=== PATIENT | male | born 1945 | race Asian ===

== ENCOUNTER 2019-07-02 19:38 | Inpatient (IN) | payer OTHER, MEDICAID ==
[~2019-07-02] VITALS: Ht 152.4 cm; Wt 64.2 kg
[2019-07-02 19:38] VITALS: BP_SYST 148
--- NOTE | 2019-07-02 19:38 | NUR ---
Patient to ER bed 4 to gown for evaluation. Side rails up.
--- NOTE | 2019-07-02 19:40 | NUR ---
Pt brought in by [facility]. Pt awake, alert, oriented x4. Pt states that he was having new onset of shortness of breath since this evening with increasing severity. Pt states that he started taking Z-pack antibiotics that were given to him by a home health nurse, prescribed by his home health physician. Pt Denies chest pain, nausea, vomiting, diarrhea, at this time. Pt denies any pain or other medical complaint at this time. Pt presented with acessory muscle use, air hunger. Pt assisted to and resting comfortably in ED bed. VSS.
--- NOTE | 2019-07-02 19:45 | NUR ---
ER at bedside examining patient.
[2019-07-02] MEDS ORDERED: NACL 0.9% 1,000 ML IV ONE ×2 (19:48→21:15)
[2019-07-02] MEDS ORDERED: LevALBUTEROL HCL 1.25 MG/0.5 ML *CONC.* VIAL.NEB (XOPENEX CONC.) INH ONE (20:00)
[2019-07-02] MEDS ORDERED: methylPREDNISolone SOD SUCC/PF 62.5 MG/ML VIAL IVP ONE (20:00)
[2019-07-02] MEDS ORDERED: IPRATROPIUM BROM 0.5 MG/2.5 ML VIAL.NEB (ATROVENT) IH ONE (20:00)
[2019-07-02 20:19] LABS: BASOPHILS % (AUTO) 0.3 % (0.0-2.0); HEMATOCRIT 40.6 % (36-54); HEMOGLOBIN 13.4 g/dL (14.0-18.0); LYMPHOCYTES # (AUTO) 0.9 K/uL (1.0-5.5); LYMPHOCYTES % (AUTO) 5.7 % (20.5-51.5); MEAN CORPUSCULAR HEMOGLOBIN 32 pg (27-31); MEAN CORPUSCULAR HGB CONC 33 % (32-36); MEAN CORPUSCULAR VOLUME 96 fL (79.0-98.0); MONOCYTES # (AUTO) 0.6 K/uL (0.0-1.0); MONOCYTES % (AUTO) 3.9 % (1.7-9.3); NEUTROPHILS % (AUTO) 90.1 % (40.0-70.0); PLATELET COUNT (AUTO) 225 K/uL (130-430); RED BLOOD CELL COUNT(AUTO) 4.22 MIL/uL (4.2-6.2); RED CELL DISTRIBUTION WIDTH 13.7 % (9.0-15.0); WHITE BLOOD COUNT (AUTO) 15.5 K/uL (4.8-10.8)
--- NOTE | 2019-07-02 20:30 | NUR ---
Pt resting in bed comfortably. Family Bedside. Pt denies any new complaint at this time.
[2019-07-02 20:31] LABS: PROTHROMBIN TIME 9.8 SECS (9.5-12.5)
[2019-07-02 20:36] LABS: CHLORIDE 93 mmol/L (98-107); SODIUM SERUM 129 mmol/L (136-145)
[2019-07-02 20:43] LABS: ANION GAP 12 (5-15); CALCIUM 8.6 mg/dL (8.4-11.0); GLUCOSE 377 mg/dL (70-99); UREA NITROGEN, BLOOD 94 mg/dL (8-21)
[2019-07-02 20:44] LABS: ALANINE AMINOTRANSFERASE 37 U/L (12-78); ALBUMIN 3.6 g/dL (3.4-4.8); ASPARTATE AMINOTRANSFERASE 30 U/L (10-37); CREATININE 4.65 mg/dL (0.55-1.30); TOTAL BILIRUBIN 0.5 mg/dL (0.0-1.0)
[2019-07-02] MEDS ORDERED: NITROGLYCERIN 1 INCH (GM) OINT. TP ONE (20:45)
[2019-07-02 20:46] LABS: POTASSIUM 6.4 mmol/L (3.5-5.1)
[2019-07-02] MEDS ORDERED: INSULIN REGULAR, HUMAN 10 UNITS/0.1 ML INJ IVP ONE (21:15)
[2019-07-02] MEDS ORDERED: SODIUM POLYSTYRENE SULFONATE 15 GM/60 ML UDBTL PO ONE ×2 (21:30→23:45)
--- NOTE | 2019-07-02 21:45 | NUR ---
Pt Resting in ED bed comfortably. Family bedside speaking with patient. Pt denies any new complaint at this time. Pt appears to be in no distress at this time. Pt sitting in high fowlers position without complaint.
--- NOTE | 2019-07-02 22:39 | NUR ---
ER MD Serna Aware of Lab Values. No Sepsis/Septic Shock documented
--- NOTE | 2019-07-02 22:51 | NUR ---
Dr. Abarca Called to accept patient and Give orders for admission
--- NOTE | 2019-07-02 23:32 | NUR ---
Patient will be admitted to care of . Admitted to tele/inp unit. Will go to room 135. Belongings list completed. Summary report printed. Report will be given at bedside.
[2019-07-02] MEDS ORDERED: INSULIN REGULAR, HUMAN 100 UNITS/ML, 10 ML VIAL (humuLIN R) SUBCUT PRN (23:45)
[2019-07-03] VITALS (18 sets, daily range): BP systolic 97–165
--- NOTE | 2019-07-03 00:02 | NUR ---
Transfer to Tele via ACLS protocol. Licensed nurse present. IV present no signs or symptoms of infiltration.
--- NOTE | 2019-07-03 00:20 | NUR ---
ADMISSION NOTE Received patient from ER via eliseo, received report from ZEN FLOREZ. Patient admitted with diagnosis of HEART FAILURE. Patient oriented to hospital routine, call light, toileting and safety-patient verbalized understanding.
--- NOTE | 2019-07-03 01:10 | NUR ---
Assessment Assessment done and patient is resting in comfortable position. Clothes and diaper removed and he is in patient gown. Updated on plan of care.
[2019-07-03] MEDS ORDERED: FURO-150 PO (01:44)
[2019-07-03] MEDS ORDERED: ACET325T53 PO (01:44)
[2019-07-03] MEDS ORDERED: TAMS-11 PO (01:44)
[2019-07-03] MEDS ORDERED: MULT-1089 PO (01:44)
[2019-07-03] MEDS ORDERED: CAT.1 PO (01:44)
[2019-07-03] MEDS ORDERED: INSU100V11 SQ (01:44)
[2019-07-03] MEDS ORDERED: GLIP5TAB13 PO (01:44)
[2019-07-03] MEDS ORDERED: SIMV20TA2 PO (01:44)
[2019-07-03] MEDS ORDERED: ASCO500T20 PO (01:44)
[2019-07-03] MEDS ORDERED: NEU100 PO (01:44)
[2019-07-03] MEDS ORDERED: INSU100I4 SUBQ (01:44)
[2019-07-03] MEDS ORDERED: ASA81 PO (01:44)
[2019-07-03] MEDS ORDERED: RESEYE OP (01:50)
[2019-07-03] MEDS ORDERED: COMBIGAN OP (01:50)
[2019-07-03] MEDS ORDERED: FER300L PO (01:50)
--- NOTE | 2019-07-03 02:32 | NUR ---
CONSULTATION PAGED REASON FOR CONSULTATION: ELEVATED WBC, ELEVATED LACTIC, ACID WAS CONSULT CALLED? YES PERSON WHO WAS NOTIFIED: JOSE CONSULTING PHYSICIAN: DR. SUSI HILL CLOUD SUBJECT MATTER EXPERT SPECIALTY:ID CLOUD SUBJECT MATTER EXPERT PHONE NUMBER: SUSI DELANEY ORDERING PHYSICIAN: [phone]
--- NOTE | 2019-07-03 02:35 | NUR ---
DR. SUSI Wright CALLED BACK REGARDING STAT CONSULT ORDERED BY DR. SUSI DELANEY
--- NOTE | 2019-07-03 02:40 | NUR ---
Dr. Abarca S/W Dr. Kyle Abarca regarding consult. Updated on elevated WBC, Elevated lactic acid. He provided orders for antibiotic, Rochephin 1gm Q 24 hr. He also provided orders for labs, renal consult with Dr. Norbert Ching, renal ultrasound and IVF, 0.45 NS at 50 ml/hr.
[2019-07-03] MEDS ORDERED: 0.45% NS 1,000 ML IV SCH (02:45)
[2019-07-03] MEDS ORDERED: cefTRIAXone 1 GM IVPB PREMIX 50 ML IV ONE (03:30)
--- NOTE | 2019-07-03 03:58 | NUR ---
CONSULT Paged Dr. Patrick's answering service for morning consult Elevated Creatine [phone] Spoke to Oswaldo
[2019-07-03] MEDS: cefTRIAXone 1 GM in D5W 50 ML IV SCH ×2 (04:31→04:32)
[2019-07-03 04:42] LABS: BASOPHILS % (AUTO) 0.1 % (0.0-2.0); HEMATOCRIT 36.8 % (36-54); HEMOGLOBIN 11.9 g/dL (14.0-18.0); LYMPHOCYTES # (AUTO) 0.9 K/uL (1.0-5.5); LYMPHOCYTES % (AUTO) 6.7 % (20.5-51.5); MEAN CORPUSCULAR HEMOGLOBIN 31 pg (27-31); MEAN CORPUSCULAR HGB CONC 33 % (32-36); MEAN CORPUSCULAR VOLUME 96 fL (79.0-98.0); MONOCYTES # (AUTO) 0.3 K/uL (0.0-1.0); MONOCYTES % (AUTO) 2.4 % (1.7-9.3); NEUTROPHILS # (AUTO) 12.9 K/uL (1.8-7.7); NEUTROPHILS % (AUTO) 90.8 % (40.0-70.0); PLATELET COUNT (AUTO) 206 K/uL (130-430); RED BLOOD CELL COUNT(AUTO) 3.83 MIL/uL (4.2-6.2); RED CELL DISTRIBUTION WIDTH 13.8 % (9.0-15.0); WHITE BLOOD COUNT (AUTO) 14.2 K/uL (4.8-10.8)
--- NOTE | 2019-07-03 04:43 | NUR ---
Antibiotic, IVF Administered antibiotic and IVF, infusing well, patient tolerating.
[2019-07-03 05:04] LABS: ALANINE AMINOTRANSFERASE 34 U/L (12-78); ALBUMIN 3.1 g/dL (3.4-4.8); ANION GAP 14 (5-15); ASPARTATE AMINOTRANSFERASE 27 U/L (10-37); CALCIUM 7.4 mg/dL (8.4-11.0); CHLORIDE 96 mmol/L (98-107); CREATININE 4.62 mg/dL (0.55-1.30); SODIUM SERUM 131 mmol/L (136-145); TOTAL BILIRUBIN 0.4 mg/dL (0.0-1.0); UREA NITROGEN, BLOOD 98 mg/dL (8-21)
[2019-07-03 05:13] LABS: GLUCOSE 452 mg/dL (70-99)
--- NOTE | 2019-07-03 05:33 | NUR ---
Critical lab result / s/w MD Ramirez and s/w Dr. Lulu Abarca regarding critical lab results of blood glucose 452 mg/dL he provided orders for regular insulin 15 units now and endo consult with Dr. Boyle. Lactic acide critical result 5.4 he is aware and has Dr. Kyle Abarca on case for consult.
[2019-07-03] MEDS ORDERED: INSULIN REGULAR, HUMAN 100 UNITS/ML, 10 ML VIAL SUBCUT ONE (05:45)
--- NOTE | 2019-07-03 05:54 | NUR ---
CONSULT Called Dr. aPyan's exchange Uncontrolled Glucose [phone] Spoke to Damon
--- NOTE | 2019-07-03 05:56 | NUR ---
CONSULT: CONSULT CALLED FOR DR. MUSTAFA I SPOKE WITH JOSE MENDOZA REASON FOR CONSULT: ELEVATED CREATINE REQUESTING CONSULT: DR. SUSI DELANEY WOOL FLEECE GRADER PHONE NUMBER: [phone]
--- NOTE | 2019-07-03 06:04 | NUR ---
CONSULT: CONSULT CALLED FOR DR. LAWTON I SPOKE WITH JERICHO MENDOZA REASON FOR CONSULT: UNCONTROLLED BLOOD GLUCOSE REQUESTING CONSULT" DR. SUSI DELANEY GROUNDS MANAGER PHONE NUMBER: [phone]
--- NOTE | 2019-07-03 07:30 | NUR ---
closing note Patient resting in comfortable position, no s/sx of distress. Endorsed report
--- NOTE | 2019-07-03 08:10 | NUR ---
DR MUSTAFA ORDERS DR MUSTAFA CALLED AGAIN AND WANTS TO DISCUSSED FURTHER WITH PATIENT LABS ALREADY DONE AND WANTS TO ORDER MORE DR MUSTAFA WANTS TO ADD ON TO BLOOD DRAWN THIS AM, TO DO URINE 24 HOUR COLLECTION FOR PROTEIN AND CREAT CLEARANCE AND TO DO UA IF NOT DONE IN ER, FOR KIDNEY ULTRASOUND IF NOT DONE IN ER, STRICT I &O . DAILY WEIGH AND TO REPEAT LABS OF CBC AND BMP THIS 1100 AM , CALLED LAB AND VERIFIED FOR THE BLOOD DRAWN THIS AM PER LAB TO ENTER ORDER AND HE WILL CALL BACK IF THEY'RE ABLE TO DO ,ALSO DR MUSTAFA REQUESTED FOR THE LITHOGRAPH DESIGNER TO CALL DR DELANEY OFFICE TO OBTAIN LABS DONE IN THE FAST 2 YEARS AND TO FAX IT OVER TO DR MUSTAFA OFFICE , INFORMED AND REQUESTED ASSSITANCE WITH LITHOGRAPH DESIGNER L...ALSO ALL ORDERS NOTED WITH THE OTHER RN ASSISTANCE .
--- NOTE | 2019-07-03 09:00 | NUR ---
0745 RECEIVED PATIENT IN BED WITH DIM LIGHT STILL SLEEPING AT BEDSIDE AND RESTING , PER NIGHT NURSE STAYED AND INTERPRETED JEHOVAH'S WITNESS DIALECT , PATIENT ON HBR AND GREETED PATIENT ACKNOWLEDGED PRESENCE ANS INFORMED WILL COME BACK LATER , TO ATTEND TO HIM , PATIENT AND PER ENDORSEMENT PATIENT HAS NO COMPLAINED OF PAIN IN HER SHIFT, ALSO GREETED AND ACKNOWLEDGED OUR PRESENCE AND SHE STAYED LAYING IN HER CHAIR . 0800 DR TERRA VALENTINE RETURNED CALL FROM THE CONSULT PAGED LAST NIGHT AND DISCUSSED SOME OF THE LABS DONE AND PATIENT CONDITION AND DR MUSTAFA SPOKE ON THE PHONE WITH THE PATIENT'S AND AFTER THAT SPOKE WITH HAND ME THE PHONE AND SAID THANK YOU . PATIENT AT THIS TIME POSITIONED HOB IN 45 DEGREE GETTING PATIENT READY FOR BREAKFAST PATIENT WAS TALKING TO THE IN THEIR DIALECT, LEFT THE PATIENT AND SO HE COULD START EATING Addendum: 07/03/19 at 1200 by Jossy Caldwell RN ASSESSMENT NO ASSESSMENT DONE A THIS TIME DT PATIENT CODED
[2019-07-03 09:03] LABS: PHOSPHORUS 7.1 mg/dL (2.7-4.5)
--- NOTE | 2019-07-03 09:06 | NUR ---
Transfer to ICU Received report from endorsing RN. Pt in ROSC. Situated pt to room. Applied soft wrist restraints bilaterally for safety, pulses present, family educated on need for restraints and state understanding.
[2019-07-03] MEDS ORDERED: INSULIN REGULAR, HUMAN 100 UNITS in NS 99 ML IV SCH ×2 (09:15)
[2019-07-03 09:33] LABS: THYROID STIMULATING HORMONE 0.59 uIu/mL (0.34-4.82)
[2019-07-03 09:36] LABS: BILIRUBIN,URINE NEGATIVE (NEGATIVE); BLOOD, URINE NEGATIVE (NEGATIVE); CLARITY/URINE CLEAR (CLEAR); COLOR,URINE YELLOW (YELLOW); GLUCOSE,URINE 3+ (NEGATIVE); KETONES,URINE NEGATIVE (NEGATIVE); LEUKOCYTE ESTERASE ,URINE NEGATIVE (NEGATIVE); NITRITE, URINE NEGATIVE (NEGATIVE); PROTEIN URINE TRACE (NEGATIVE); UROBILINOGEN,URINE 0.2 (0.2-1.0)
--- NOTE | 2019-07-03 09:44 | NUR ---
Tack Puller Machine Note Moe palomo. Offered support to and, later, patient's son. Addendum: 07/03/19 at 1453 by Jenni Pereira LCSW TIKI conducted a Discharge Plan Assessment Patient lives with his , son, and daughter in law. Corrected contact information with Gabbi in Admitting and asked for a new face sheet, madyson lora [phone] c [phone]. They hope patient can be weaned from the ventilator and return home. Patient has been receiving home health services from [facility]. Tack Puller Machine/Case Management/[employer] will remain available.
[2019-07-03 09:45] LABS: BACTERIA,URINE FEW /HPF (None Seen); HYALINE CASTS, URINE 0-10 /LPF (None Seen); RBC,URINE 0-3 /HPF (0-3); WBC,URINE 0-3 /HPF (0-3)
--- NOTE | 2019-07-03 09:51 | NUR ---
Nutrition Update Andreas Scale 16 noted. Pt admitted for heart failure. Diet: 2 gm Na, renal, 2 gm Na, banana flakes daily BMI: 28.5 kg/m2 RD to follow per nutrition care standards.
--- NOTE | 2019-07-03 10:00 | NUR ---
0830 CAME INTO THE ROOM AND PATIENT STILL EATING HIS FOOD SLOWLY AND FINISHED HIS CEREAL AND BREAD AND NO SIGN OF COUGHING ,HE HAS A SMILE AND CONVERSING WITH THE , NO DISTRESS , INFORMED WITH THE PATIENT LISTENING THAT LIP CUTTER WHO SHE SPOKE ON THE PHONE HAS ORDERED ULTRASOUND OF THE KIDNEY , LABS AND WILL DO STRICT INPUT AND OUTPUT TO MONITOR HIS KIDNEY FUNCTION AND TO TREAT NECESSARY , ALSO INFORMED IN ORDER FOR US TO COLLECT URINE WE NEED TO CATHETERIZE THE PATIENT WITH A AGUILERA CATH TO COLLECT URINE FOR EXAM THAT THE LIP CUTTER TO TREAT FURTHER , PATIENT FULLY UNDERSTOOD, AND SHE WAS EXPLAINING TO THE PATIENT AND STUDENT AT BEDSIDE STILL CONVERSING WITH AND PATIENT , THEN THE NOTICED THAT PATIENT STARES BLANKLY I WAS BY THE DOOR GOING OUT TO PREPARE FOR THE MEDS AND TO PREPARE TO DO AGUILERA CATH INSERTION , AND STUDENT CALLED ME BACK AND I NOTED PATIENT STARES BLANKLY AND WHEN NAME IS CALLED PATIENT NON RESPONSIVE , NON RESPONSIVE TO THE STERNAL PAIN STIMULATION TO NO AVAIL. 0835 PATIENT NON RESPONSIVE CALLED [facility] AND CPR STARTED , STAFF CAME AND EMERGENCY CODE BLUE STARTED , AT BEDSIDE AND COMFORT PROVIDED 0930 PATIENT INTUBATED , RESUSCITATED AND ORDERED BY ER DR TRANSFER TO ICU PATIENT TRANSFERRED TO ICU WITH RESPIRATORY TEAM AND MONITORED REPORT GIVEN TO ASHUTOSH AND ALL PREVIOUS ORDERS GIVEN INFORMED L. DISABILITY SERVICES COORDINATOR TO NOTIFY DR RHETT GOLDMAN AND DR MUSTAFA THAT PATIENT IS TRANSFERRED TO ICU AND HAD A CODE BLUE FAMILY PRESENT AND AWARE OF THE PATIENT CONDITION AND SITUATION
[2019-07-03] MEDS: PIPERACILLIN/TAZO 2.25G/DEX-IS 50 ML IV SCH ×3 (10:22→21:08)
--- NOTE | 2019-07-03 10:30 | NUR ---
IV PLACEMENT: # 20 gauge angiocath placed to right AC. Use of asceptic technique. Opsite placed over site. Blood return noted. Blood for lab from site. Flushed with 10 cc of normal saline. No evidence of infiltration noted. Patient tolerated well.
--- NOTE | 2019-07-03 11:00 | NUR ---
Vent setting change to FiO2 80% by RT, pt tolerating well
--- NOTE | 2019-07-03 11:02 | NUR ---
Vent setting change to AC 26 by RT per MD order.
[2019-07-03] MEDS: LINEZOLID 300 ML IV SCH ×2 (11:21→21:09)
[2019-07-03 11:26] LABS: BASOPHILS # (AUTO) 0.1 K/uL (0.0-0.2); BASOPHILS % (AUTO) 0.3 % (0.0-2.0); EOSINOPHILS % (AUTO) 0.1 % (0.0-4.0); HEMATOCRIT 42.1 % (36-54); HEMOGLOBIN 13.1 g/dL (14.0-18.0); LYMPHOCYTES # (AUTO) 1.3 K/uL (1.0-5.5); LYMPHOCYTES % (AUTO) 6.3 % (20.5-51.5); MEAN CORPUSCULAR HEMOGLOBIN 31 pg (27-31); MEAN CORPUSCULAR HGB CONC 31 % (32-36); MEAN CORPUSCULAR VOLUME 100 fL (79.0-98.0); MONOCYTES # (AUTO) 1.2 K/uL (0.0-1.0); MONOCYTES % (AUTO) 5.8 % (1.7-9.3); NEUTROPHILS # (AUTO) 18.5 K/uL (1.8-7.7); NEUTROPHILS % (AUTO) 87.5 % (40.0-70.0); PLATELET COUNT (AUTO) 219 K/uL (130-430); RED BLOOD CELL COUNT(AUTO) 4.19 MIL/uL (4.2-6.2); RED CELL DISTRIBUTION WIDTH 14.6 % (9.0-15.0); WHITE BLOOD COUNT (AUTO) 21.2 K/uL (4.8-10.8)
[2019-07-03 11:35] LABS: ANION GAP 17 (5-15); CALCIUM 7.8 mg/dL (8.4-11.0); CHLORIDE 96 mmol/L (98-107); POTASSIUM 4.6 mmol/L (3.5-5.1); SODIUM SERUM 133 mmol/L (136-145)
--- NOTE | 2019-07-03 11:36 | NUR ---
Witnessed Insulin drip started at 6 units/hr, BS 363
[2019-07-03] MEDS: FUROSEMIDE 40 MG/4 ML VIAL IVP SCH ×2 (11:43→21:05)
[2019-07-03 11:49] LABS: GLUCOSE 409 mg/dL (70-99); UREA NITROGEN, BLOOD 105 mg/dL (8-21)
[2019-07-03] MEDS: MORPHINE 2 MG/ML INJ. SYRINGE IVP PRN (11:51)
--- NOTE | 2019-07-03 12:37 | NUR ---
CONSULT GI DR. RAMIREZ CALLED SPOKE TO GLORY DIALED [phone] ORDERED BY Kyle RAMOS
--- NOTE | 2019-07-03 12:42 | NUR ---
Witnessed Insulin drip titrated at 5 units/hr, BS 310
[2019-07-03] MEDS: AZITHROMYCIN 250 MG in NS 250 ML IV SCH (13:20)
--- NOTE | 2019-07-03 13:21 | NUR ---
Witnessed Insulin drip titrated at 4 units/hr, BS 289
--- NOTE | 2019-07-03 14:40 | NUR ---
Witnessed Insulin drip titrated at 3 units/hr, BS 214
[2019-07-03] MEDS ORDERED: DIATR MEGLU/DIATRIZ SOD 30 ML SOLUTION PO ONE (14:54)
--- NOTE | 2019-07-03 15:03 | NUR ---
0835 CODE BLUE. CPR IN PROGRESS. BAGGED THE PT VIA MASK/AMBU BAG 100% FIO2. 0843 ASSISTED INTUBATION ETT 7.01/18 AT LIP LINE WITH SERG ANCHOR FAST. CO2 DETECTOR CHANGED COLOR YELLOW AND BILATERAL BREATH SOUNDS. 0845 ROSC. TRANSFERRED PT TO ICU. PLACED PT ON VENT WITH AC20, VT450, PEEP +5, FIO2 100%. ALARM SET AND AUDIBLE, VENT TO RED OUTLET.
--- NOTE | 2019-07-03 15:51 | NUR ---
Vent setting changed to FiO2 70% by RT per MD orders.
--- NOTE | 2019-07-03 15:54 | NUR ---
Witnessed Insulin drip titrated at 2 units/hr, BS 176
--- NOTE | 2019-07-03 16:41 | NUR ---
Witnessed Insulin drip titrated at 1 units/hr, BS 135
--- NOTE | 2019-07-03 16:52 | NUR ---
1550 TITRATED FIO2 DOWN TO 70%. PT TOLERATING WELL. SPO2 99%, HR 59.
--- NOTE | 2019-07-03 17:16 | NUR ---
Witnessed Insulin drip titrated at 0 units/hr, BS 103
--- NOTE | 2019-07-03 17:20 | NUR ---
Pt off unit to CT with continuos monitoring and O2. RN, RT, tech present with pt.
--- NOTE | 2019-07-03 17:55 | NUR ---
Pt return from CT, situated to room. Tolerated well.
[2019-07-03 19:20] LABS: ANION GAP 13 (5-15); CALCIUM 7.2 mg/dL (8.4-11.0); CHLORIDE 96 mmol/L (98-107); CREATININE 4.92 mg/dL (0.55-1.30); GLUCOSE 86 mg/dL (70-99); SODIUM SERUM 130 mmol/L (136-145)
--- NOTE | 2019-07-03 19:20 | NUR ---
Endorsed plan of care to shift foreman RN.
[2019-07-03 19:27] LABS: UREA NITROGEN, BLOOD 107 mg/dL (8-21)
--- NOTE | 2019-07-03 19:30 | NUR ---
PM ASSESSMENT REPORT RECEIVED FROM ASHUTOSH ZALDIVAR. PT RECEIVED IN BED WITH EYES OPEN, RESPONDING TO TACTILE STIMULATION. FAMILY IS AT BEDSIDE. VSS, NO S/S OF ACUTE DISTRESS NOTED. PT INTUBATED, VENT SETTINGS: AC 26, TV 450, FIO2 70%, PEEP 5. SB ON MONITOR. R NARE NGT IN PLACE TO DIAZ. BILATERAL SOFT WRIST RESTRAINTS IN PLACE, NO S/S OF INJURY NOTED. AGUILERA CATH IN PLACE DRAINING YELLOW URINE TO GRAVITY. HOB ELEVATED, BED IN LOWEST POSITION, CALL LIGHT IN REACH. WILL CONTINUE TO MONITOR PT.
--- NOTE | 2019-07-03 19:45 | NUR ---
DR. LEIGHANN SHEPPARD MADE AWARE OF PT CURRENT LABS. ORDERS RECEIVED AND WILL BE CARRIED OUT ORDERED.
--- NOTE | 2019-07-03 20:42 | NUR ---
DR. LYDIA SHEPPARD MADE AWARE OF CT CHEST/ABD RESULTS. NO NEW ORDERS RECEIVED AT THIS TIME. WILL CONTINUE TO MONITOR PT.
[2019-07-03] MEDS: LORazepam 2 MG/ML VIAL IVP PRN ×2 (21:08→23:54)
[2019-07-03] MEDS ORDERED: INSULIN LISPRO SLIDING SCALE 100 UNITS/ML VIAL (humaLOG) SUBCUT PRN (22:15)
--- NOTE | 2019-07-03 23:40 | NUR ---
MIDLINE MIDLINE PLACED TO JOSHUA BY PICC LINE NURSE. PER PICC LINE NURSE MIDLINE OKAY TO USE AT THIS TIME.
[2019-07-04] VITALS (33 sets, daily range): BP systolic 91–162
[2019-07-04 00:12] LABS: ANION GAP 13 (5-15); CHLORIDE 90 mmol/L (98-107); CREATININE 5.09 mg/dL (0.55-1.30); GLUCOSE 149 mg/dL (70-99); POTASSIUM 4.2 mmol/L (3.5-5.1); SODIUM SERUM 127 mmol/L (136-145)
[2019-07-04 00:21] LABS: UREA NITROGEN, BLOOD 102 mg/dL (8-21)
--- NOTE | 2019-07-04 03:30 | NUR ---
CHG CHG BATH GIVEN AT THIS TIME. DONNA CARE DONE AND LINENS CHANGED. PT TOLERATED WELL. WILL CONTINUE TO MONITOR PT.
[2019-07-04] MEDS: LORazepam 2 MG/ML VIAL IVP PRN (04:04)
[2019-07-04 06:12] LABS: BASOPHILS % (AUTO) 0.2 % (0.0-2.0); HEMATOCRIT 30.8 % (36-54); HEMOGLOBIN 10.2 g/dL (14.0-18.0); LYMPHOCYTES # (AUTO) 0.9 K/uL (1.0-5.5); LYMPHOCYTES % (AUTO) 7.7 % (20.5-51.5); MEAN CORPUSCULAR HEMOGLOBIN 32 pg (27-31); MEAN CORPUSCULAR HGB CONC 33 % (32-36); MEAN CORPUSCULAR VOLUME 95 fL (79.0-98.0); MONOCYTES # (AUTO) 1.3 K/uL (0.0-1.0); MONOCYTES % (AUTO) 10.8 % (1.7-9.3); NEUTROPHILS # (AUTO) 9.6 K/uL (1.8-7.7); NEUTROPHILS % (AUTO) 81.3 % (40.0-70.0); PLATELET COUNT (AUTO) 159 K/uL (130-430); RED BLOOD CELL COUNT(AUTO) 3.23 MIL/uL (4.2-6.2); RED CELL DISTRIBUTION WIDTH 13.7 % (9.0-15.0); WHITE BLOOD COUNT (AUTO) 11.8 K/uL (4.8-10.8)
[2019-07-04] MEDS: PIPERACILLIN/TAZO 2.25G/DEX-IS 50 ML IV SCH ×3 (06:17→21:32)
--- NOTE | 2019-07-04 07:06 | NUR ---
ENDORSEMENT BEDSIDE REPORT GIVEN TO [facility] RN USING SBAR APPROACH.
[2019-07-04 07:14] LABS: T4 (THYROXINE) 5.6 ug/dL (4.5-12.0)
[2019-07-04 07:28] LABS: ALANINE AMINOTRANSFERASE 46 U/L (12-78); ALBUMIN 2.3 g/dL (3.4-4.8); ANION GAP 10 (5-15); ASPARTATE AMINOTRANSFERASE 55 U/L (10-37); CHLORIDE 94 mmol/L (98-107); CREATININE 4.93 mg/dL (0.55-1.30); GLUCOSE 148 mg/dL (70-99); POTASSIUM 4.1 mmol/L (3.5-5.1); SODIUM SERUM 128 mmol/L (136-145); TOTAL BILIRUBIN 0.5 mg/dL (0.0-1.0)
--- NOTE | 2019-07-04 07:45 | NUR ---
AM ASSESSMENT REPORT RECEIVED . PT RECEIVED IN BED WITH EYES OPEN, RESPONDING TO TACTILE STIMULATION. FAMILY IS AT BEDSIDE. VSS, NO S/S OF ACUTE DISTRESS NOTED. PT INTUBATED, VENT SETTINGS: AC 26, TV 450, FIO2 70%, PEEP 5. SR WITH IAV BLOCK AND PVC'S ON MONITOR. R NARE NGT IN PLACE TO LIS. BILATERAL SOFT WRIST RESTRAINTS IN PLACE, NO S/S OF INJURY NOTED. AGUILERA CATH IN PLACE DRAINING YELLOW URINE TO GRAVITY. HOB ELEVATED, BED IN LOWEST POSITION, CALL LIGHT IN REACH. BED ALARM ON. AIR MATTRESS. WILL CONTINUE TO MONITOR.
[2019-07-04 07:55] LABS: CALCIUM 6.6 mg/dL (8.4-11.0); UREA NITROGEN, BLOOD 109 mg/dL (8-21)
--- NOTE | 2019-07-04 08:05 | NUR ---
RT NOTES FIO2 to 60% per ABG results and titration order. No adverse reactions noted. Will monitor pt.
[2019-07-04] MEDS ORDERED: CALCIUM GLUCONATE 1 GM/10 ML VIAL IVP ONE (08:45)
[2019-07-04] MEDS ORDERED: FUROSEMIDE 40 MG/4 ML VIAL IVP ONE (08:45)
[2019-07-04 08:47] LABS: PHOSPHORUS 5.9 mg/dL (2.7-4.5)
--- NOTE | 2019-07-04 08:50 | NUR ---
RECEIVED CALL DR. MUSTAFA, INFORMED ABOUT THE LABS RESULT AND NEW ORDER RECEIVED.
[2019-07-04] MEDS ORDERED: DOPamine PREMIX 250 ML IV SCH (09:00)
[2019-07-04] MEDS ORDERED: COMMUNICATION ORDER XX ONE ×2 (09:00→09:30)
[2019-07-04] MEDS: NACL 0.9% 1,000 ML IV SCH ×3 (09:12→21:48)
[2019-07-04] MEDS: LINEZOLID 300 ML IV SCH ×2 (09:16→21:33)
[2019-07-04] MEDS ORDERED: INSULIN GLARGINE 100 UNITS/ML 10 ML VIAL SUBCUT ONE (09:30)
[2019-07-04] MEDS ORDERED: DEXTROSE 50% JECT 50 ML DISP.SYRIN IVP PRN (09:30)
--- NOTE | 2019-07-04 09:30 | NUR ---
sharad Consult: seen by Dr. Boyle discuss about the poc to the family member at the bedside.new order received.
[2019-07-04] MEDS ORDERED: MINERAL OIL 133 ML ENEMA RC ONE (09:45)
[2019-07-04] MEDS ORDERED: MINERAL OIL 30 ML UDC NG ONE (09:45)
--- NOTE | 2019-07-04 10:40 | NUR ---
RT NOTES Per Dr aCba's order, pushed ETT 2cm down, secured at 24cm lipline and vent settings to AC 22. FIO2 to 50% per titration order. No adverse reactions noted. Bilateral b/s/chest rise noted. Will monitor pt.
[2019-07-04] MEDS ORDERED: ALBUTEROL SULFATE 0.083% 2.5 MG/3 ML VIAL.NEB INH PRN (10:45)
[2019-07-04] MEDS ORDERED: IPRATROPIUM BROM 0.5 MG/2.5 ML VIAL.NEB (ATROVENT) INH PRN (10:45)
--- NOTE | 2019-07-04 10:47 | NUR ---
Pulmo consult: seen by Dr. Caba. family at bedside.
[2019-07-04] MEDS ORDERED: D5NS 1,000 ML IV PRN (11:00)
[2019-07-04] MEDS: AZITHROMYCIN 250 MG in NS 250 ML IV SCH (11:26)
[2019-07-04] MEDS: FUROSEMIDE 40 MG/4 ML VIAL IVP SCH ×2 (11:26→21:30)
[2019-07-04] MEDS: MINERAL OIL 30 ML UDC NG SCH ×2 (11:27→21:30)
[2019-07-04] MEDS: INSULIN LISPRO SLIDING SCALE 100 UNITS/ML VIAL (humaLOG) SUBCUT PRN ×4 (13:04→23:12)
[2019-07-04] MEDS: ALBUTEROL SULFATE 0.083% 2.5 MG/3 ML VIAL.NEB INH SCH ×2 (13:29→19:15)
[2019-07-04] MEDS: IPRATROPIUM BROM 0.5 MG/2.5 ML VIAL.NEB (ATROVENT) INH SCH ×2 (13:29→19:15)
[2019-07-04] MEDS ORDERED: CALCIUM GLUCONATE 1 GM/10 ML VIAL IVP SCH (14:00)
--- NOTE | 2019-07-04 14:00 | NUR ---
MD ROUNDS: SEEN BY Gertrude RAMOS DISCUSS ABOUT PATIENT CURRENT CONDITION AND PLAN OF CARE. PER MD FAMILY WILL DECIDED TODAY IF PT UNDERGOING HEMODIALYSIS.
--- NOTE | 2019-07-04 16:00 | NUR ---
TURN AND REPOSITION WITH PILLOW SUPPORT. FAMILY AT BEDSIDE UPDATED ABOUT THE POC.
[2019-07-04] MEDS: CALCIUM GLUCONATE 1 GM in NS 100 ML IV SCH (16:46)
--- NOTE | 2019-07-04 18:39 | NUR ---
Notes: no significant changes of condition noted. vent setting ac 22, tv 450 fio2 40% peep 5. saturation 99-100%. ivf ns @125ml/hr and dopamine @ 2.47ml/hr midline at right upper arm with two lumen. with good blood return. ngt at right nare, low intermittent suction coffee ground output 200ml for whole shift. abdomen distended.no bm after manual enema done. ortiz catheter draining clear yellow output 990ml out. skin intact. family wants to speak with doctors about DNR tomorrow. will endorsed to incoming nurse.
--- NOTE | 2019-07-04 19:30 | NUR ---
PM ASSESSMENT REPORT RECEIVED FROM LEONRA ZALDIVAR. PT RECEIVED IN BED WITH EYES CLOSED, RESPONDING TO TACTILE STIMULATION. VSS, NO S/S OF ACUTE DISTRESS NOTED. PT INTUBATED, VENT SETTINGS: AC 22, TV 450, FIO2 40%, PEEP 5. SR ON MONITOR. JOSHUA MIDLINE IN PLACE INFUSING NS @ 125 CC/HR AND DOPAMINE DRIP @ 1 MCG/KG/MIN. LAC AND RAC 20G TO SL, PATENT AND INTACT. R NARE NGT TO DIAZ, COFFEE GROUND DRAINAGE NOTED. FAMILY IS AT BEDSIDE. HOB ELEVATED, BED IN LOWEST POSITION, CALL LIGHT IN REACH. WILL CONTINUE TO MONITOR PT.
[2019-07-04] MEDS: FAMOTIDINE PF 20 MG/2 ML VIAL IVP SCH (21:30)
[2019-07-04] MEDS: HEPARIN SODIUM,PORCINE 5000 UNITS/ML VIAL SUBCUT SCH (21:32)
[2019-07-04 22:41] LABS: TOTAL VOLUME 24HRS,URINE 500 mL
[2019-07-04 22:42] LABS: CREATININE,URINE 73.5 MG/DL (30-125)
[2019-07-04 22:46] LABS: CREATININE CLEARANCE,URINE 6.4 ml/min (80-120); PATIENT WEIGHT 146 LBS
[2019-07-05] VITALS (35 sets, daily range): BP systolic 128–180
[2019-07-05] MEDS: CALCIUM GLUCONATE 1 GM in NS 100 ML IV SCH ×3 (00:42→18:00)
[2019-07-05] MEDS: ALBUTEROL SULFATE 0.083% 2.5 MG/3 ML VIAL.NEB INH SCH ×4 (00:50→20:53)
[2019-07-05] MEDS: IPRATROPIUM BROM 0.5 MG/2.5 ML VIAL.NEB (ATROVENT) INH SCH ×4 (00:51→20:53)
[2019-07-05] MEDS: LORazepam 2 MG/ML VIAL IVP PRN ×2 (02:35→04:28)
[2019-07-05] MEDS: INSULIN LISPRO SLIDING SCALE 100 UNITS/ML VIAL (humaLOG) SUBCUT PRN ×3 (03:33→19:01)
--- NOTE | 2019-07-05 03:45 | NUR ---
CHG CHG BATH GIVEN AT THIS TIME. DONNA CARE DONE AND LINENS CHANGED. PT TOLERATED WELL. WILL CONTINUE TO MONITOR PT.
[2019-07-05 05:27] LABS: BASOPHILS # (AUTO) 0.1 K/uL (0.0-0.2); BASOPHILS % (AUTO) 0.7 % (0.0-2.0); EOSINOPHILS % (AUTO) 0.1 % (0.0-4.0); HEMATOCRIT 33.5 % (36-54); HEMOGLOBIN 11.2 g/dL (14.0-18.0); LYMPHOCYTES # (AUTO) 1.1 K/uL (1.0-5.5); LYMPHOCYTES % (AUTO) 10.6 % (20.5-51.5); MEAN CORPUSCULAR HEMOGLOBIN 32 pg (27-31); MEAN CORPUSCULAR HGB CONC 34 % (32-36); MEAN CORPUSCULAR VOLUME 94 fL (79.0-98.0); MONOCYTES # (AUTO) 1.2 K/uL (0.0-1.0); MONOCYTES % (AUTO) 11.8 % (1.7-9.3); NEUTROPHILS # (AUTO) 7.8 K/uL (1.8-7.7); NEUTROPHILS % (AUTO) 76.8 % (40.0-70.0); PLATELET COUNT (AUTO) 183 K/uL (130-430); RED BLOOD CELL COUNT(AUTO) 3.57 MIL/uL (4.2-6.2); RED CELL DISTRIBUTION WIDTH 13.6 % (9.0-15.0); WHITE BLOOD COUNT (AUTO) 10.2 K/uL (4.8-10.8)
[2019-07-05 05:47] LABS: ALANINE AMINOTRANSFERASE 40 U/L (12-78); ALBUMIN 2.4 g/dL (3.4-4.8); ANION GAP 13 (5-15); ASPARTATE AMINOTRANSFERASE 40 U/L (10-37); CALCIUM 7.6 mg/dL (8.4-11.0); CHLORIDE 96 mmol/L (98-107); GLUCOSE 136 mg/dL (70-99); LIPASE 145 U/L (73-393); SODIUM SERUM 136 mmol/L (136-145); TOTAL BILIRUBIN 0.7 mg/dL (0.0-1.0)
[2019-07-05 05:54] LABS: POTASSIUM 2.8 mmol/L (3.5-5.1)
[2019-07-05 05:55] LABS: UREA NITROGEN, BLOOD 101 mg/dL (8-21)
[2019-07-05] MEDS: PIPERACILLIN/TAZO 2.25G/DEX-IS 50 ML IV SCH ×3 (06:01→22:28)
--- NOTE | 2019-07-05 07:20 | NUR ---
Endorsement Received shift report from tawny ZALDIVAR
--- NOTE | 2019-07-05 07:30 | NUR ---
Opening Note Patient received sleeping in bed with family @ bedside. Patient on monitoring analyst with NSR. Patient on a ventilator with settings of AC 22, tidal volume 450, FiO2 40%, and PEEP 5. Patient has a right upper midline infusing NS @ 125 ml/hr. Patient also has peripheral IV's patent and saline-locked. Patient also on a dopamine drip @ 1 mcg/min. Patient has a right nare NGT connected to low intermittent suction. Patient has a ortiz catheter in place draining yellow urine. Skin intact. Safety precautions enforced.
[2019-07-05] MEDS ORDERED: POTASSIUM CHLORIDE 40 MEQ in NS 250 ML IV ONE (07:45)
[2019-07-05] MEDS ORDERED: COMMUNICATION ORDER XX ONE (07:45)
[2019-07-05] MEDS: MINERAL OIL 30 ML UDC NG SCH ×2 (08:41→20:12)
[2019-07-05] MEDS: FUROSEMIDE 40 MG/4 ML VIAL IVP SCH (08:42)
[2019-07-05] MEDS: HEPARIN SODIUM,PORCINE 5000 UNITS/ML VIAL SUBCUT SCH ×2 (08:44→20:14)
[2019-07-05] MEDS ORDERED: INSULIN GLARGINE 100 UNITS/ML 10 ML VIAL SUBCUT SCH (09:00)
[2019-07-05] MEDS: NACL 0.9% 1,000 ML IV SCH ×2 (09:18→22:27)
--- NOTE | 2019-07-05 09:52 | NUR ---
RT NOTES Vent settings to AC [address] Caba's order. No adverse reactions noted. Will monitor pt. Addendum: 07/05/19 at 1010 by Debi Valderrama RT Amended: Links added.
--- NOTE | 2019-07-05 10:45 | NUR ---
Called Dr Patrick regarding PT high blood pressure. Spoke to Adriane and left message.
--- NOTE | 2019-07-05 11:13 | NUR ---
MD Rounds Dr. Kyle Abarca @ bedside for examination. New orders received.
[2019-07-05] MEDS ORDERED: hydrALAZINE HCL 20 MG/ML VIAL IVP ONE (11:15)
[2019-07-05] MEDS: LINEZOLID 300 ML IV SCH (11:17)
--- NOTE | 2019-07-05 11:28 | NUR ---
MD Rounds Dr. Desire Abarca @ bedside for examination. New orders received.
[2019-07-05] MEDS ORDERED: HEPARIN SODIUM,PORCINE 5000 UNITS/ML VIAL MC ONE (13:00)
--- NOTE | 2019-07-05 13:00 | NUR ---
Dialysis Catheter insertion Dr. Orellana @ bedside for dialysis catheter insertion. Given Heparin 5,000 units by MD. Patient tolerated procedure well.
[2019-07-05 13:04] LABS: PROTHROMBIN TIME 10.3 SECS (9.5-12.5)
[2019-07-05] MEDS ORDERED: ATROPINE SULFATE 1 MG/10 ML SYRINGE IVP ONE (13:27)
--- NOTE | 2019-07-05 13:50 | NUR ---
MD Rounds Dr. Patrick @ bedside for examination. New orders received.
--- NOTE | 2019-07-05 14:25 | NUR ---
MD Rounds Dr. Boyle @ bedside for examination.
[2019-07-05] MEDS: AZITHROMYCIN 250 MG in NS 250 ML IV SCH (15:45)
[2019-07-05] MEDS: hydrALAZINE HCL 20 MG/ML VIAL IVP PRN ×2 (15:45→22:29)
--- NOTE | 2019-07-05 17:11 | NUR ---
Dialysis cis coordinator @ bedside at this time.
[2019-07-05] MEDS ORDERED: *TPN PER PHARMACY XX PRN (17:15)
--- NOTE | 2019-07-05 19:10 | NUR ---
Endorsement Handoff report given to night RN using SBAR.
--- NOTE | 2019-07-05 19:15 | NUR ---
PM ASSESSMENT Pt in bed with eyes closed resting comfortably, no signs of acute distress or discomfort noted. Family at bedside. Pt receiving dialysis at this time. VSS with SR seen on the monitor. Pt intubated with vent settings AC 16, TV 450, FiO2 40% and PEEP of 5. Pt has a JOSHUA midline infusing NS @ 80 cc/hr and Dopamine @ 1 mcg. Dressing c/d/i. Pt also has L AC 20g SL and R IJ for dialysis, c/d/i. R nare NG tube noted connected to LIS. Farrar cath noted draining urine to gravity. Bed is locked and in lowest position, call light within reach, will cont to monitor pt.
--- NOTE | 2019-07-05 19:25 | NUR ---
Closing notes Pt is receiving dialysis. No signs of distress or pain. Bed in lowest position & locked.
[2019-07-05] MEDS: FAMOTIDINE PF 20 MG/2 ML VIAL IVP SCH (20:12)
--- NOTE | 2019-07-05 22:00 | NUR ---
Pt in bed with eyes closed resting comfortably, no signs of acute distress or discomfort noted. Pt repositioned at this time, pt tolerated well. Will cont to monitor pt.
[2019-07-06] VITALS (32 sets, daily range): BP systolic 110–174
--- NOTE | 2019-07-06 | NUR ---
Pt in bed with eyes closed resting comfortably, no signs of acute distress or discomfort noted. Pt vent settings still AC 16, TV 450, FIO2 40% and PEEP of 5. Pt tolerating vent settings well with even and unlabored breathing and O2 sats @ 97%. Will cont to monitor pt.
[2019-07-06] MEDS: CALCIUM GLUCONATE 1 GM in NS 100 ML IV SCH (01:05)
[2019-07-06] MEDS: ALBUTEROL SULFATE 0.083% 2.5 MG/3 ML VIAL.NEB INH SCH ×4 (01:38→20:24)
[2019-07-06] MEDS: IPRATROPIUM BROM 0.5 MG/2.5 ML VIAL.NEB (ATROVENT) INH SCH ×4 (01:39→20:24)
--- NOTE | 2019-07-06 03:45 | NUR ---
CHG CHG bath given to pt at this time. Pt tolerated bath well, will cont to monitor pt.
[2019-07-06] MEDS: PIPERACILLIN/TAZO 2.25G/DEX-IS 50 ML IV SCH ×3 (05:04→22:29)
[2019-07-06 05:42] LABS: BASOPHILS # (AUTO) 0.1 K/uL (0.0-0.2); BASOPHILS % (AUTO) 0.5 % (0.0-2.0); EOSINOPHILS % (AUTO) 0.4 % (0.0-4.0); HEMATOCRIT 32.7 % (36-54); HEMOGLOBIN 10.9 g/dL (14.0-18.0); LYMPHOCYTES # (AUTO) 1.2 K/uL (1.0-5.5); LYMPHOCYTES % (AUTO) 10.8 % (20.5-51.5); MEAN CORPUSCULAR HEMOGLOBIN 32 pg (27-31); MEAN CORPUSCULAR HGB CONC 33 % (32-36); MEAN CORPUSCULAR VOLUME 94 fL (79.0-98.0); MONOCYTES # (AUTO) 1.1 K/uL (0.0-1.0); MONOCYTES % (AUTO) 10.1 % (1.7-9.3); NEUTROPHILS # (AUTO) 8.8 K/uL (1.8-7.7); NEUTROPHILS % (AUTO) 78.2 % (40.0-70.0); PLATELET COUNT (AUTO) 178 K/uL (130-430); RED BLOOD CELL COUNT(AUTO) 3.47 MIL/uL (4.2-6.2); RED CELL DISTRIBUTION WIDTH 13.7 % (9.0-15.0); WHITE BLOOD COUNT (AUTO) 11.2 K/uL (4.8-10.8)
[2019-07-06 06:06] LABS: ALANINE AMINOTRANSFERASE 29 U/L (12-78); ALBUMIN 2.2 g/dL (3.4-4.8); ANION GAP 17 (5-15); ASPARTATE AMINOTRANSFERASE 29 U/L (10-37); CALCIUM 8.5 mg/dL (8.4-11.0); CHLORIDE 101 mmol/L (98-107); CREATININE 3.49 mg/dL (0.55-1.30); GLUCOSE 160 mg/dL (70-99); PHOSPHORUS 5.6 mg/dL (2.7-4.5); SODIUM SERUM 141 mmol/L (136-145); UREA NITROGEN, BLOOD 74 mg/dL (8-21)
[2019-07-06 06:24] LABS: POTASSIUM 2.5 mmol/L (3.5-5.1)
[2019-07-06] MEDS: INSULIN LISPRO SLIDING SCALE 100 UNITS/ML VIAL (humaLOG) SUBCUT PRN ×4 (06:25→18:25)
--- NOTE | 2019-07-06 06:33 | NUR ---
Page out to Dr. Lulu Abarca for critical lab of K 2.5. Spoke to exchange. Will cont to monitor pt.
--- NOTE | 2019-07-06 06:50 | NUR ---
Second page out to Dr. Lulu Abarca for critical lab of K 2.5. Spoke with Alden at his exchange. Will cont to monitor pt.
--- NOTE | 2019-07-06 07:08 | NUR ---
Dr. Lulu Abarca called back. Made MD aware of pt's critical lab K+ 2.5. New orders received. Will endorse to oncoming nurse.
--- NOTE | 2019-07-06 07:10 | NUR ---
ENDORSEMENT Report given to oncoming RN and pt care was endorsed. No signs of acute distress or discomfort noted.
--- NOTE | 2019-07-06 07:15 | NUR ---
Opening Note Patient received in bed connected to the cardiac catheterization technologist with NSR. Patient on ventilator with settings of AC 16, tidal volume 450, FiO2 40%, and PEEP 5. No signs of distress noted. Patient has a right upper arm midline infusing NS @ 80 ml/hr. Patient also receiving dopamine @ 1 mcg/min. Patient with peripheral IV and right right IJ for dialysis. Patient has a NGT connected to low intermittent suction. Patient has a ortiz catheter draining yellow urine. Skin intact. Safety precautions enforced.
[2019-07-06] MEDS ORDERED: POTASSIUM CHLORIDE 20 MEQ/PKT PACKET NG ONE (08:00)
[2019-07-06] MEDS: MINERAL OIL 30 ML UDC NG SCH ×2 (08:18→20:35)
[2019-07-06] MEDS: FUROSEMIDE 40 MG/4 ML VIAL IVP SCH (08:19)
[2019-07-06] MEDS: HEPARIN SODIUM,PORCINE 5000 UNITS/ML VIAL SUBCUT SCH ×2 (08:20→20:34)
[2019-07-06] MEDS: INSULIN GLARGINE 100 UNITS/ML 10 ML VIAL SUBCUT SCH (08:24)
--- NOTE | 2019-07-06 08:30 | NUR ---
MD Rounds Dr. Caba @ bedside for examination.
--- NOTE | 2019-07-06 09:40 | NUR ---
Dialysis airfield defence guard @ bedside.
[2019-07-06] MEDS ORDERED: HEPARIN SODIUM,PORCINE 5000 UNITS/ML VIAL ONE ×3 (10:26→19:13)
--- NOTE | 2019-07-06 10:54 | NUR ---
Per studio receptionist, Sherri, dialysis catheter keeps collapsing. To call Dr. Orellana to fix catheter or place a new one per Dr. Patrick. Once dialysis catheter is fixed/replaced, RN to call Jackie studio receptionist, to resume current dialysis order.
[2019-07-06] MEDS: AZITHROMYCIN 250 MG in NS 250 ML IV SCH (11:22)
[2019-07-06] MEDS: NACL 0.9% 1,000 ML IV SCH (11:23)
--- NOTE | 2019-07-06 13:20 | NUR ---
MD Rounds Dr. Desire Abarca @ bedside for examination.
[2019-07-06] MEDS ORDERED: HEPARIN SODIUM, PORCINE 10,000 UNITS/ 10 ML VIAL MC ONE (13:45)
--- NOTE | 2019-07-06 13:51 | NUR ---
Ventilator update RT at bedside, FiO2 changed to 35%, O2 saturation at 100%.
--- NOTE | 2019-07-06 14:16 | NUR ---
Dietitian Recommendations * Recommend continuing plans for TPN D20,% AA5.4% at 42 ml/hr, IL20% at 5 ml/hr via central line Provides: 520 kcal/day, 27 gm protein/day, 1008 ml total volume/day, and GIR: 0.53 gm CHO/kg/min Meets: 36% of estimated caloric needs and 75% of lower end of estimated protein needs * RD to re-assess estimated nutritional needs and TPN recommendations in 2-3 days LP, RD Please refer to Nutrition Assessment for details. Addendum: 07/06/19 at [address] Amended: Links added.
--- NOTE | 2019-07-06 14:20 | NUR ---
MD Rounds Dr. Patrick @ bedside for examination. New orders received.
--- NOTE | 2019-07-06 15:20 | NUR ---
Ventilator update RT at bedside, settings changed to SIMV, rate: 10, FiO2: 35%, Peep: 5 Addendum: 07/06/19 at 1525 by Shiva Bosch RN Ventilator update RT at bedside, settings changed to SIMV, rate: 10, FiO2: 30%, Peep: 5
--- NOTE | 2019-07-06 16:30 | NUR ---
Dr. Orellana in and did a guidewire exchange and replaced the po catheter. CXR taken post procedure and xray reviewed by Dr. Orellana. Po is good to use. traffic warehouse supervisor notified to re call the dialysis company to come back and finish the HD from this morning, per Dr. Patrick.
--- NOTE | 2019-07-06 17:00 | NUR ---
MD Rounds Dr. Boyle @ bedside for examination.
--- NOTE | 2019-07-06 17:32 | NUR ---
Dialysis work force advisor @ bedside @ this time. Patient sleeping comfortably.
--- NOTE | 2019-07-06 19:20 | NUR ---
PM ASSESSMENT Pt in bed with eyes closed resting comfortably, no signs of acute distress or discomfort noted. Family at bedside. Pt receiving dialysis at this time. VSS. Pt intubated with vent settings SIMV 10, TV 450, FiO2 30%, PS 10 and PEEP of 5. Pt has a JOSHUA midline infusing NS @ 80 cc/hr. Dressing c/d/i. Pt also has L AC 20g SL and R IJ for dialysis, c/d/i. R nare NG tube noted connected to LIS. Farrar cath noted draining urine to gravity. Bilat wrist restraints noted. Bed is locked and in lowest position, call light within reach, will cont to monitor pt.
--- NOTE | 2019-07-06 19:24 | NUR ---
Closing Note Patient endorsed via SBAR to nurse ZEN Black. Patient is receiving Dialysis and has no s/s of distress.
[2019-07-06] MEDS: FAT EMULSIONS 250 ML IV SCH (20:33)
[2019-07-06] MEDS: FAMOTIDINE PF 20 MG/2 ML VIAL IVP SCH (20:35)
[2019-07-06] MEDS ORDERED: NACL 0.9% 1,000 ML IV SCH (21:00)
[2019-07-06] MEDS ORDERED: MVI IV SCH ×8 (21:00)
[2019-07-06] MEDS ORDERED: POTASSIUM CHLORIDE IV SCH ×8 (21:00)
[2019-07-06] MEDS ORDERED: TPN NEPHRAMINE IV SCH ×8 (21:00)
[2019-07-06] MEDS: hydrALAZINE HCL 20 MG/ML VIAL IVP PRN (21:00)
[2019-07-06] MEDS ORDERED: [UNRECOGNIZED DRUG - OTHER] IV SCH ×8 (21:00)
--- NOTE | 2019-07-06 21:00 | NUR ---
PAGED Paged Dr. Caba's exchange/Dr. Gonzalez food production manager [phone] Spoke to Joselyn
--- NOTE | 2019-07-06 22:40 | NUR ---
MD FLOR Called Dr. Boyle's exchange [phone] Spoke to Duane
--- NOTE | 2019-07-06 22:50 | NUR ---
Spoke to Dr. Boyle regarding pt's blood sugar of 97. New orders received, will carry out orders.
[2019-07-06] MEDS ORDERED: D5/0.45 NS 1,000 ML IV SCH (23:00)
[2019-07-06] MEDS: MORPHINE 2 MG/ML INJ. SYRINGE IVP PRN (23:52)
[2019-07-06] MEDS: LORazepam 2 MG/ML VIAL IVP PRN (23:52)
[2019-07-07] VITALS (32 sets, daily range): BP systolic 139–199
[2019-07-07] MEDS: IPRATROPIUM BROM 0.5 MG/2.5 ML VIAL.NEB (ATROVENT) INH SCH ×4 (01:52→19:55)
[2019-07-07] MEDS: ALBUTEROL SULFATE 0.083% 2.5 MG/3 ML VIAL.NEB INH SCH ×4 (01:52→19:55)
[2019-07-07] MEDS: LORazepam 2 MG/ML VIAL IVP PRN ×2 (02:47→20:57)
[2019-07-07] MEDS: MORPHINE 2 MG/ML INJ. SYRINGE IVP PRN ×2 (02:47→20:57)
[2019-07-07] MEDS: INSULIN LISPRO SLIDING SCALE 100 UNITS/ML VIAL (humaLOG) SUBCUT PRN ×6 (02:53→22:38)
--- NOTE | 2019-07-07 03:20 | NUR ---
CHG CHG bath given to pt at this time. Pt tolerated well. No signs of acute distress or discomfort noted. Will cont to monitor pt.
[2019-07-07] MEDS: hydrALAZINE HCL 20 MG/ML VIAL IVP PRN ×4 (05:13→23:16)
[2019-07-07 05:53] LABS: BASOPHILS # (AUTO) 0.1 K/uL (0.0-0.2); BASOPHILS % (AUTO) 0.5 % (0.0-2.0); EOSINOPHILS # (AUTO) 0.4 K/uL (0.0-0.4); EOSINOPHILS % (AUTO) 3.5 % (0.0-4.0); HEMATOCRIT 30.1 % (36-54); HEMOGLOBIN 10.3 g/dL (14.0-18.0); LYMPHOCYTES % (AUTO) 9.5 % (20.5-51.5); MEAN CORPUSCULAR HEMOGLOBIN 33 pg (27-31); MEAN CORPUSCULAR HGB CONC 34 % (32-36); MEAN CORPUSCULAR VOLUME 95 fL (79.0-98.0); MONOCYTES # (AUTO) 1.1 K/uL (0.0-1.0); MONOCYTES % (AUTO) 10.2 % (1.7-9.3); NEUTROPHILS # (AUTO) 8.2 K/uL (1.8-7.7); NEUTROPHILS % (AUTO) 76.3 % (40.0-70.0); PLATELET COUNT (AUTO) 172 K/uL (130-430); RED BLOOD CELL COUNT(AUTO) 3.17 MIL/uL (4.2-6.2); RED CELL DISTRIBUTION WIDTH 13.8 % (9.0-15.0); WHITE BLOOD COUNT (AUTO) 10.8 K/uL (4.8-10.8)
[2019-07-07] MEDS: PIPERACILLIN/TAZO 2.25G/DEX-IS 50 ML IV SCH ×3 (06:24→22:35)
[2019-07-07 06:25] LABS: ALANINE AMINOTRANSFERASE 31 U/L (12-78); ALBUMIN 2.1 g/dL (3.4-4.8); ANION GAP 7 (5-15); ASPARTATE AMINOTRANSFERASE 29 U/L (10-37); CALCIUM 7.7 mg/dL (8.4-11.0); CHLORIDE 104 mmol/L (98-107); CREATININE 2.34 mg/dL (0.55-1.30); GLUCOSE 165 mg/dL (70-99); PHOSPHORUS 2.9 mg/dL (2.7-4.5); POTASSIUM 3.3 mmol/L (3.5-5.1); SODIUM SERUM 137 mmol/L (136-145); TOTAL BILIRUBIN 0.8 mg/dL (0.0-1.0); TRIGLYCERIDES 125 mg/dL (30-150); UREA NITROGEN, BLOOD 38 mg/dL (8-21)
--- NOTE | 2019-07-07 06:35 | NUR ---
Page out to Dr. Gunderson for critical lab value. Spoke to Abbie aguilar exchange. Addendum: 07/07/19 at 0659 by Wayne Eisenberg RN BRANDYN GONZALEZ PT.
--- NOTE | 2019-07-07 07:20 | NUR ---
Received patient and report from NOC shift. In no acute distress.
--- NOTE | 2019-07-07 07:23 | NUR ---
ENDORSEMENT Report given to oncoming day shift RN and pt care was endorsed, no signs of acute distress or discomfort noted.
--- NOTE | 2019-07-07 09:00 | NUR ---
MD Patrick new order hemodialysis 3 hours UF 2.5, 4 k with regular Heparin. D/C IV fluids today. CMP with diff, CBC, chest x-ray, magnesium, phosphorus tomorrow morning. Orders placed and carried out.
[2019-07-07] MEDS: FUROSEMIDE 40 MG/4 ML VIAL IVP SCH (10:04)
[2019-07-07] MEDS: MINERAL OIL 30 ML UDC NG SCH ×2 (10:05→20:58)
[2019-07-07] MEDS: INSULIN GLARGINE 100 UNITS/ML 10 ML VIAL SUBCUT SCH (10:07)
[2019-07-07] MEDS: HEPARIN SODIUM,PORCINE 5000 UNITS/ML VIAL SUBCUT SCH ×2 (10:22→21:00)
--- NOTE | 2019-07-07 13:00 | NUR ---
Dialysis nurse present at bedside.
[2019-07-07] MEDS: TOBRAMYCIN SULFATE 0.3% EYE DROPS 5 ML OP SCH ×3 (15:33→22:35)
[2019-07-07] MEDS: DEXAMETHASONE SOD PHOS 0.1% EYE OR EAR DROPS OP SCH ×3 (15:33→22:35)
--- NOTE | 2019-07-07 16:00 | NUR ---
Dialysis completed, removed 2 liters.
--- NOTE | 2019-07-07 16:26 | NUR ---
Page out to Dr. Desire Abarca, new orders made.
--- NOTE | 2019-07-07 16:50 | NUR ---
Called MD Abarca, reported systolic b/p range from 160s to 170s despite PRN apresoline, new order Norvasc daily 10 mg via NGT.
[2019-07-07] MEDS ORDERED: amLODIPine BESYLATE 10 MG TABLET PO ONE (17:00)
--- NOTE | 2019-07-07 19:19 | NUR ---
Endorsed patient and gave report to oncoming shift nurse. Patient in no acute distress.
--- NOTE | 2019-07-07 19:50 | NUR ---
Opening Note Pt in bed, confused/lethargic. Pt is SR on the monitor. Vent settings: SIMV 10, TV 450, FIO2 30%, PEEP 5, PS 10. No s/s of distress noted. VSS, w/ BP elevated. PRN medication to be given. Pt has RAC 20 SL and JOSHUA midline in place running TPN/Lipids/ IV site C/D/I. Rt IJ Derik cather in place for dialysis. No s/s of infiltration noted. Farrar catheter in place draining urine to gravity. Pt has (R)NGT set to low intermittent suction. Pt has restraints bilaterally. No s/s of skin breakdown noted. Skin intact, Q2H turns in place. Bed locked in lowest position, call light in reach, and safety precautions in place. Will continue to monitor.
[2019-07-07] MEDS: FAMOTIDINE PF 20 MG/2 ML VIAL IVP SCH (20:56)
[2019-07-07] MEDS ORDERED: [UNRECOGNIZED DRUG - OTHER] IV SCH ×8 (21:00)
[2019-07-07] MEDS ORDERED: MVI IV SCH ×8 (21:00)
[2019-07-07] MEDS ORDERED: POTASSIUM CHLORIDE IV SCH ×8 (21:00)
[2019-07-07] MEDS ORDERED: TPN NEPHRAMINE IV SCH ×8 (21:00)
[2019-07-07] MEDS: FAT EMULSIONS 250 ML IV SCH (21:03)
[2019-07-08] VITALS (33 sets, daily range): BP systolic 20–203
--- NOTE | 2019-07-08 00:39 | NUR ---
RN Rounds Pt in bed asleep. No s/s of distress noted. BP remains elevated. PRN Apresoline given. Will continue to monitor.
[2019-07-08] MEDS: ALBUTEROL SULFATE 0.083% 2.5 MG/3 ML VIAL.NEB INH SCH ×4 (00:45→19:43)
[2019-07-08] MEDS: IPRATROPIUM BROM 0.5 MG/2.5 ML VIAL.NEB (ATROVENT) INH SCH ×4 (00:45→19:44)
[2019-07-08] MEDS: MORPHINE 2 MG/ML INJ. SYRINGE IVP PRN ×2 (01:27→04:15)
[2019-07-08] MEDS: LORazepam 2 MG/ML VIAL IVP PRN ×2 (01:28→04:15)
--- NOTE | 2019-07-08 02:30 | NUR ---
RN Rounds Pt in bed asleep. No s/s of distress noted. Pt oral care given and turned Q2H. Will continue to monitor.
[2019-07-08] MEDS: INSULIN LISPRO SLIDING SCALE 100 UNITS/ML VIAL (humaLOG) SUBCUT PRN ×6 (02:32→22:16)
[2019-07-08] MEDS: TOBRAMYCIN SULFATE 0.3% EYE DROPS 5 ML OP SCH ×6 (02:33→22:12)
[2019-07-08] MEDS: DEXAMETHASONE SOD PHOS 0.1% EYE OR EAR DROPS OP SCH ×6 (02:33→22:12)
--- NOTE | 2019-07-08 04:30 | NUR ---
CHG CHG bath given and linens changed. Pt tolerated well. Will continue to monitor.
[2019-07-08] MEDS: hydrALAZINE HCL 20 MG/ML VIAL IVP PRN ×3 (05:37→18:41)
[2019-07-08 06:02] LABS: BASOPHILS # (AUTO) 0.1 K/uL (0.0-0.2); BASOPHILS % (AUTO) 0.6 % (0.0-2.0); EOSINOPHILS # (AUTO) 0.4 K/uL (0.0-0.4); EOSINOPHILS % (AUTO) 3.8 % (0.0-4.0); HEMATOCRIT 32.2 % (36-54); HEMOGLOBIN 10.8 g/dL (14.0-18.0); LYMPHOCYTES # (AUTO) 0.9 K/uL (1.0-5.5); LYMPHOCYTES % (AUTO) 9.2 % (20.5-51.5); MEAN CORPUSCULAR HEMOGLOBIN 32 pg (27-31); MEAN CORPUSCULAR HGB CONC 34 % (32-36); MEAN CORPUSCULAR VOLUME 95 fL (79.0-98.0); MONOCYTES # (AUTO) 1.2 K/uL (0.0-1.0); MONOCYTES % (AUTO) 11.7 % (1.7-9.3); NEUTROPHILS # (AUTO) 7.5 K/uL (1.8-7.7); NEUTROPHILS % (AUTO) 74.7 % (40.0-70.0); PLATELET COUNT (AUTO) 171 K/uL (130-430); RED BLOOD CELL COUNT(AUTO) 3.39 MIL/uL (4.2-6.2); RED CELL DISTRIBUTION WIDTH 13.7 % (9.0-15.0); WHITE BLOOD COUNT (AUTO) 10.1 K/uL (4.8-10.8)
[2019-07-08] MEDS: PIPERACILLIN/TAZO 2.25G/DEX-IS 50 ML IV SCH ×3 (06:13→21:49)
--- NOTE | 2019-07-08 06:27 | NUR ---
Closing Note Pt in bed asleep. SR on the monitor. Vent settings remain the same. Pt has JOSHUA PICC infusing ABx and TPN/Lipids. IV site C/D/I. No s/s of infiltration noted. Rt NGT tube in place, set to low intermittent suction. Minimal urine drained from ortiz catheter. Pt has restraints bilaterally to wrist. No s/s of skin breakdown noted. Bed locked in lowest position, call light in reach, and safety precautions in place. Will endorse to oncoming RN.
--- NOTE | 2019-07-08 07:13 | NUR ---
Endorsement Report given to oncoming RN at bedside via SBAR approach.
[2019-07-08 07:20] LABS: ALANINE AMINOTRANSFERASE 27 U/L (12-78); ALBUMIN 2.1 g/dL (3.4-4.8); ANION GAP 10 (5-15); ASPARTATE AMINOTRANSFERASE 26 U/L (10-37); CHLORIDE 101 mmol/L (98-107); CREATININE 2.06 mg/dL (0.55-1.30); GLUCOSE 189 mg/dL (70-99); PHOSPHORUS 2.7 mg/dL (2.7-4.5); POTASSIUM 3.6 mmol/L (3.5-5.1); SODIUM SERUM 137 mmol/L (136-145); TOTAL BILIRUBIN 0.8 mg/dL (0.0-1.0); UREA NITROGEN, BLOOD 27 mg/dL (8-21)
--- NOTE | 2019-07-08 07:20 | NUR ---
Received patient and report from [facility] shift nurse. In no acute distress.
[2019-07-08] MEDS: FUROSEMIDE 40 MG/4 ML VIAL IVP SCH (08:00)
[2019-07-08] MEDS: MINERAL OIL 30 ML UDC NG SCH ×2 (08:00→21:49)
[2019-07-08] MEDS: amLODIPine BESYLATE 10 MG TABLET PO SCH (08:04)
[2019-07-08] MEDS: HEPARIN SODIUM,PORCINE 5000 UNITS/ML VIAL SUBCUT SCH ×2 (08:06→21:50)
[2019-07-08] MEDS: INSULIN GLARGINE 100 UNITS/ML 10 ML VIAL SUBCUT SCH (08:07)
--- NOTE | 2019-07-08 09:10 | NUR ---
MD Patrick paged in regards to systolic range from 170s to 200s.
--- NOTE | 2019-07-08 09:26 | NUR ---
0907 CHANGED TO AC10 PER MD JOSE. SPO2 98%, HR 68. WILL CONTINUE TO MONITOR PT.
--- NOTE | 2019-07-08 14:10 | NUR ---
MD Patrick new order CBC with diff, CMP, Phosphorus, Magnesium tomorrow morning.
--- NOTE | 2019-07-08 14:10 | NUR ---
MD Patrick called back, reported b/p results. New order to change current apresoline order 10 mg IVP to every 4 hours instead of 6. Orders placed and carried out.
--- NOTE | 2019-07-08 14:59 | NUR ---
MD Patrick new order transfer to [facility] tomorrow. Orders placed.
--- NOTE | 2019-07-08 15:42 | NUR ---
DC Planning: faxed [facility] referral package to Lisette # [phone], tel# [phone].
--- NOTE | 2019-07-08 19:11 | NUR ---
Endorsed patient and gave report to NOC shift nurse. Patient in no acute distress.
--- NOTE | 2019-07-08 19:43 | NUR ---
Opening Note Pt in bed, confused/lethargic. Pt is SR on the monitor. Vent settings: AC 10, TV 450, FIO2 30%, PEEP 5, PS 10. No s/s of distress noted. VSS, w/ BP elevated. PRN medication to be given. Pt has LAC 20 SL and JOSHUA midline in place running TPN/Lipids. IV site C/D/I. Rt IJ Derik catheter in place for dialysis. No s/s of infiltration noted. Farrar catheter in place draining urine to gravity. Pt has (R)NGT set to low intermittent suction. Pt has restraints bilaterally. No s/s of skin breakdown noted. Skin intact, Q2H turns in place. Bed locked in lowest position, call light in reach, and safety precautions in place. Will continue to monitor.
--- NOTE | 2019-07-08 20:41 | NUR ---
Dr. Gomez at bedside examining Pt.
[2019-07-08] MEDS ORDERED: MVI IV SCH ×9 (21:00)
[2019-07-08] MEDS ORDERED: [UNRECOGNIZED DRUG - OTHER] IV SCH ×9 (21:00)
[2019-07-08] MEDS ORDERED: TPN NEPHRAMINE IV SCH ×9 (21:00)
[2019-07-08] MEDS ORDERED: POTASSIUM CHLORIDE IV SCH ×9 (21:00)
[2019-07-08] MEDS: FAMOTIDINE PF 20 MG/2 ML VIAL IVP SCH (21:49)
[2019-07-08] MEDS: FAT EMULSIONS 250 ML IV SCH (21:51)
--- NOTE | 2019-07-08 23:50 | NUR ---
LAC 20g infiltrated. Unable to flush. IV d/c'ed and gauze put over site. No s/s of pain noted. Will continue to monitor.
[2019-07-09] VITALS (32 sets, daily range): BP systolic 127–185
[2019-07-09] MEDS: hydrALAZINE HCL 20 MG/ML VIAL IVP PRN ×3 (00:02→21:26)
[2019-07-09] MEDS: ALBUTEROL SULFATE 0.083% 2.5 MG/3 ML VIAL.NEB INH SCH ×4 (00:53→19:26)
[2019-07-09] MEDS: IPRATROPIUM BROM 0.5 MG/2.5 ML VIAL.NEB (ATROVENT) INH SCH ×4 (00:54→19:26)
--- NOTE | 2019-07-09 01:26 | NUR ---
RN Rounds Pt in bed asleep. No s/s of distress noted. BP remains elevated, PRN medication given. Pt TPN/Lipids infusing through JOSHUA PICC Line. Will continue to monitor.
--- NOTE | 2019-07-09 01:54 | NUR ---
Dr. Abarca at bedside examining Pt. New orders received. Will carry out as ordered.
--- NOTE | 2019-07-09 02:30 | NUR ---
CHG CHG bath given and linens changed. Pt tolerated well. Will continue to monitor.
[2019-07-09] MEDS: NITROGLYCERIN 1 INCH (GM) OINT. TP SCH ×3 (03:04→20:40)
[2019-07-09] MEDS: TOBRAMYCIN SULFATE 0.3% EYE DROPS 5 ML OP SCH ×6 (03:04→22:43)
[2019-07-09] MEDS: DEXAMETHASONE SOD PHOS 0.1% EYE OR EAR DROPS OP SCH ×6 (03:04→22:42)
[2019-07-09] MEDS: INSULIN LISPRO SLIDING SCALE 100 UNITS/ML VIAL (humaLOG) SUBCUT PRN ×5 (03:08→22:49)
[2019-07-09] MEDS ORDERED: NITROGLYCERIN 1 INCH (GM) OINT. ONE (03:14)
--- NOTE | 2019-07-09 04:16 | NUR ---
RN Round Pt remains asleep in bed. BP elevated. No s/s of distress noted. Will continue to monitor.
--- NOTE | 2019-07-09 05:13 | NUR ---
NG TUBE Rt NGT found outside of Pt nose. NGT taken out and placement of Lt NGT now in place. Confirmed placement with 2 RNs. Pt tolerated well. 15ml of gastric content outputted immediately after insertion. Will continue to monitor.
[2019-07-09] MEDS: PIPERACILLIN/TAZO 2.25G/DEX-IS 50 ML IV SCH ×3 (06:04→21:07)
--- NOTE | 2019-07-09 06:33 | NUR ---
Closing Note Pt in bed asleep. SR on the monitor. Vent settings AC 10, FIO2 30%, TV 450, PEEP 5. No s/s of distress noted. Pt has Rt IJ Derik catheter for dialysis use, and JOSHUA PICC infusing ABx and TPN/Lipids. IV sites C/D/I. No s/s of infiltration noted. Lt NGT tube in place, set to low intermittent suction. Minimal urine drained from ortiz catheter. Pt has restraints bilaterally to wrist. No s/s of skin breakdown noted. Bed locked in lowest position, call light in reach, and safety precautions in place. Will endorse to oncoming RN.
[2019-07-09 06:50] LABS: BASOPHILS # (AUTO) 0.1 K/uL (0.0-0.2); BASOPHILS % (AUTO) 0.5 % (0.0-2.0); EOSINOPHILS # (AUTO) 0.5 K/uL (0.0-0.4); EOSINOPHILS % (AUTO) 3.8 % (0.0-4.0); HEMATOCRIT 30.7 % (36-54); HEMOGLOBIN 10.2 g/dL (14.0-18.0); LYMPHOCYTES # (AUTO) 0.9 K/uL (1.0-5.5); LYMPHOCYTES % (AUTO) 7.1 % (20.5-51.5); MEAN CORPUSCULAR HEMOGLOBIN 32 pg (27-31); MEAN CORPUSCULAR HGB CONC 33 % (32-36); MEAN CORPUSCULAR VOLUME 96 fL (79.0-98.0); MONOCYTES # (AUTO) 1.7 K/uL (0.0-1.0); NEUTROPHILS # (AUTO) 9.9 K/uL (1.8-7.7); NEUTROPHILS % (AUTO) 75.6 % (40.0-70.0); PLATELET COUNT (AUTO) 171 K/uL (130-430); RED BLOOD CELL COUNT(AUTO) 3.21 MIL/uL (4.2-6.2); RED CELL DISTRIBUTION WIDTH 13.7 % (9.0-15.0); WHITE BLOOD COUNT (AUTO) 13.1 K/uL (4.8-10.8)
[2019-07-09 06:57] LABS: ALANINE AMINOTRANSFERASE 33 U/L (12-78); ALBUMIN 2.1 g/dL (3.4-4.8); ANION GAP 8 (5-15); ASPARTATE AMINOTRANSFERASE 32 U/L (10-37); CALCIUM 8.1 mg/dL (8.4-11.0); CHLORIDE 102 mmol/L (98-107); CREATININE 2.48 mg/dL (0.55-1.30); GLUCOSE 172 mg/dL (70-99); PHOSPHORUS 2.1 mg/dL (2.7-4.5); POTASSIUM 3.8 mmol/L (3.5-5.1); SODIUM SERUM 137 mmol/L (136-145); UREA NITROGEN, BLOOD 33 mg/dL (8-21)
--- NOTE | 2019-07-09 07:15 | NUR ---
OPENING NOTE: SBAR report and plan of care received from roll winder ZEN Camara
--- NOTE | 2019-07-09 07:20 | NUR ---
Endorsement Report given to oncoming RN at bedside via SBAR approach.
[2019-07-09] MEDS: amLODIPine BESYLATE 10 MG TABLET PO SCH (08:48)
[2019-07-09] MEDS: FUROSEMIDE 40 MG/4 ML VIAL IVP SCH ×2 (08:49→20:41)
[2019-07-09] MEDS: cloNIDine HCL 0.1 MG/24 HR PATCH.TDWK TD SCH (08:50)
[2019-07-09] MEDS: MINERAL OIL 30 ML UDC NG SCH ×2 (08:50→20:43)
[2019-07-09] MEDS: HEPARIN SODIUM,PORCINE 5000 UNITS/ML VIAL SUBCUT SCH ×2 (08:53→20:39)
[2019-07-09] MEDS: INSULIN GLARGINE 100 UNITS/ML 10 ML VIAL SUBCUT SCH (08:54)
--- NOTE | 2019-07-09 09:24 | NUR ---
Dr Ching called regarding patient status, orders received. Addendum: 07/09/19 at 0932 by Michael Lopez RN CORRECTION: is Dr. Doris Patrick
--- NOTE | 2019-07-09 09:30 | NUR ---
RT NOTES- SIMV 10 PT PLACED ON SIMV 10, 450, PS10, +5, 30% PER . RN JEFFRY NOTIFIED. PT TOLERATING WELL. NO RESPIRATORY DISTRESS NOTED. WILL CONTINUE MONITORING.
--- NOTE | 2019-07-09 09:33 | NUR ---
NO Dialysis today per Dr. Patrick, Lasix increased to BID
[2019-07-09] MEDS ORDERED: GASTROGRAFIN 120 ML ONE (09:49)
--- NOTE | 2019-07-09 11:04 | NUR ---
Discharge Planning: DDCP faxed pt referral to [facility] (f [phone] p [phone]) DCP to follow up Addendum: 07/09/19 at 1122 by Ania Pugh DP CORRECTION DCP received message jorge Knox from [facility] approved by jason Carodna for room. DCP made CM aware
[2019-07-09] MEDS: LORazepam 2 MG/ML VIAL IVP PRN ×2 (13:58→20:41)
--- NOTE | 2019-07-09 14:30 | NUR ---
CHG BATH: CHG bath given, gown and linens changed, patient tolerated well with minimal discomfort.
--- NOTE | 2019-07-09 15:00 | NUR ---
WOUND CARE: Wound care provided, dressings changed, patient tolerated well with minimal discomfort.
--- NOTE | 2019-07-09 19:20 | NUR ---
AT 1913 P.M, RECEIVED NURSING REPORT FROM DAY TOM ALFARO R.N
--- NOTE | 2019-07-09 19:20 | NUR ---
RECEIVED NURSING REPORT FROM DAY TOM ALEXANDER R.N
--- NOTE | 2019-07-09 19:29 | NUR ---
CLOSING NOTE: SBAR report given and plan of care endorsed to shift production associate ZEN Bryan
[2019-07-09] MEDS: FAT EMULSIONS 250 ML IV SCH (20:36)
[2019-07-09] MEDS: FAMOTIDINE PF 20 MG/2 ML VIAL IVP SCH (20:40)
[2019-07-09] MEDS ORDERED: MVI IV SCH ×10 (21:00)
[2019-07-09] MEDS ORDERED: [UNRECOGNIZED DRUG - OTHER] IV SCH ×10 (21:00)
[2019-07-09] MEDS ORDERED: TPN NEPHRAMINE IV SCH ×10 (21:00)
[2019-07-09] MEDS ORDERED: POTASSIUM CHLORIDE IV SCH ×10 (21:00)
[2019-07-10] VITALS (33 sets, daily range): BP systolic 104–179
[2019-07-10] MEDS: ALBUTEROL SULFATE 0.083% 2.5 MG/3 ML VIAL.NEB INH SCH ×4 (00:57→19:40)
[2019-07-10] MEDS: IPRATROPIUM BROM 0.5 MG/2.5 ML VIAL.NEB (ATROVENT) INH SCH ×4 (00:57→19:40)
[2019-07-10] MEDS: LORazepam 2 MG/ML VIAL IVP PRN ×2 (02:10→17:20)
[2019-07-10] MEDS: INSULIN LISPRO SLIDING SCALE 100 UNITS/ML VIAL (humaLOG) SUBCUT PRN ×5 (02:14→23:25)
[2019-07-10] MEDS: DEXAMETHASONE SOD PHOS 0.1% EYE OR EAR DROPS OP SCH ×6 (04:07→23:40)
[2019-07-10] MEDS: TOBRAMYCIN SULFATE 0.3% EYE DROPS 5 ML OP SCH ×6 (04:07→23:40)
[2019-07-10] MEDS: hydrALAZINE HCL 20 MG/ML VIAL IVP PRN ×3 (04:08→18:42)
--- NOTE | 2019-07-10 05:10 | NUR ---
PATIENT IS CONFUSION/ LETHARGIC ,UNABLE TO FOLLOW COMMANDS AND MAKE NEEDS KNOWN, RIGHT EYE BLIND, BOTH EYES REDNESS, ORDERED GIVE EYE DROP USE ,RESTLESS, TRY REACH AND PULL OUT TUBES, ORDERED BILATERAL WRISTS WEAR SOFT RESTRAINT CONTINUE FOR SAFETY, ET-TUBE INTACT, VENTILATOR SETTING : SIMV 10, TV 450, FIO2 30%, PEEP 5, PRESSURE SUPPORT 10, O2 SAT. 94-98 %, RIGHT UPPER ARM MIDLINE INTACT, DOUBLE LUMEN GOOD BLOOD RETURN, NG-TUBE INTACT, WITH LOWER PRESSURE SUCTION INTERMITTENT, SUCTION OUT 125 ML, DARK BROWN SECRETION, AGUILERA INTACT, DRAIN YELLOW CLEAR URINE, ALL EXTREMITIES PITTING EDEMA ,ELEVATED ON THE PILLOWS, HAD 2 TIME DIARRHEA ( AFTER MINERAL OIL ) YELLOW GREEN COLOR STOOL, BACK, BUTTOCKS SKIN INTACT, CONTINUE TOTAL CARE, REPOSITION EVERY 2 HOURS, RAILS UP X2, KEEP CLEAN, SAFETY, COMFORTABLE SUPPORT ALL TIMES
[2019-07-10] MEDS: PIPERACILLIN/TAZO 2.25G/DEX-IS 50 ML IV SCH (06:06)
[2019-07-10 06:15] LABS: BASOPHILS # (AUTO) 0.1 K/uL (0.0-0.2); BASOPHILS % (AUTO) 0.7 % (0.0-2.0); EOSINOPHILS # (AUTO) 0.5 K/uL (0.0-0.4); EOSINOPHILS % (AUTO) 3.6 % (0.0-4.0); HEMATOCRIT 28.1 % (36-54); HEMOGLOBIN 9.3 g/dL (14.0-18.0); LYMPHOCYTES # (AUTO) 1.3 K/uL (1.0-5.5); LYMPHOCYTES % (AUTO) 8.7 % (20.5-51.5); MEAN CORPUSCULAR HEMOGLOBIN 32 pg (27-31); MEAN CORPUSCULAR HGB CONC 33 % (32-36); MEAN CORPUSCULAR VOLUME 96 fL (79.0-98.0); MONOCYTES # (AUTO) 2.2 K/uL (0.0-1.0); NEUTROPHILS # (AUTO) 10.4 K/uL (1.8-7.7); PLATELET COUNT (AUTO) 169 K/uL (130-430); RED BLOOD CELL COUNT(AUTO) 2.94 MIL/uL (4.2-6.2); RED CELL DISTRIBUTION WIDTH 13.9 % (9.0-15.0)
[2019-07-10 07:01] LABS: ALANINE AMINOTRANSFERASE 61 U/L (12-78); ALBUMIN 2.1 g/dL (3.4-4.8); ANION GAP 10 (5-15); ASPARTATE AMINOTRANSFERASE 66 U/L (10-37); CALCIUM 8.3 mg/dL (8.4-11.0); CHLORIDE 106 mmol/L (98-107); GLUCOSE 165 mg/dL (70-99); PHOSPHORUS 2.1 mg/dL (2.7-4.5); POTASSIUM 3.8 mmol/L (3.5-5.1); SODIUM SERUM 142 mmol/L (136-145); TOTAL BILIRUBIN 0.7 mg/dL (0.0-1.0); UREA NITROGEN, BLOOD 38 mg/dL (8-21)
[2019-07-10 07:16] LABS: WHITE BLOOD COUNT (AUTO) 14.5 K/uL (4.8-10.8)
--- NOTE | 2019-07-10 07:22 | NUR ---
GIVE COMPLETE NURSING REPORT TO DAY SHIFT MARGARETH Pisano
--- NOTE | 2019-07-10 07:30 | NUR ---
Opening Note Received report via SBAR communication from nurse Namrata RN
[2019-07-10] MEDS: NITROGLYCERIN 1 INCH (GM) OINT. TP SCH ×2 (08:35→20:24)
[2019-07-10] MEDS: FUROSEMIDE 40 MG/4 ML VIAL IVP SCH ×2 (08:35→20:24)
[2019-07-10] MEDS: amLODIPine BESYLATE 10 MG TABLET PO SCH (08:36)
[2019-07-10] MEDS: HEPARIN SODIUM,PORCINE 5000 UNITS/ML VIAL SUBCUT SCH ×2 (08:37→20:25)
[2019-07-10] MEDS: INSULIN GLARGINE 100 UNITS/ML 10 ML VIAL SUBCUT SCH (08:40)
--- NOTE | 2019-07-10 09:00 | NUR ---
Physician Round Dr. Caba at bedside, indicated patient will continue weaning from ventilator after completion of Dialysis. No new orders given
[2019-07-10] MEDS: MINERAL OIL 30 ML UDC NG SCH ×2 (10:05→20:23)
--- NOTE | 2019-07-10 10:30 | NUR ---
Dr. Patrick contacted regarding dialysis, reported current labs. Received new order for hemodialysis 3 hours UF 2.5, 3 potassium, with tight heparin.
--- NOTE | 2019-07-10 10:30 | NUR ---
Physican Minerva Boyle at bedside, Fingerstick glucose checks changed to every 6 hours. MD entered ordered.
--- NOTE | 2019-07-10 10:36 | NUR ---
Case mgt: MIESHA Arteaga and I met w/pt's family (sons and ) at bedside after I s/w Dr. Caba--Pt is on SIMV-vent weaning trial--Son Dakota asking why can't pt stay at our hospital instead of transferring to [facility]. I explained the LTAC level of care and that pt can continue ventilator weaning at the LTAC ICU if Dr. Abarca indicates pt is stable for transfer. Pt is accepted at [facility] and we will f/u with Dr. Abarca when he rounds. Jenni and I explained to family that if we get transfer order, we will f/u with Dakota and let him know the details of transfer. Family is agreeable for transfer to LTAC at this time but waiting for Dr. Abarca's assessment. NANNETTE ZALDIVAR
--- NOTE | 2019-07-10 12:10 | NUR ---
Dialysis nurse José Miguel RN at bedside. Dialysis initiated at 1205, set to run for 3 hours. Patient lying in bed with eyes closed. Vitals are T:98.7 P: 97, BP: 147/64, O2: 95%, R: 27
--- NOTE | 2019-07-10 14:05 | NUR ---
Physican round Dr. Patrick at bedside, no new orders given
--- NOTE | 2019-07-10 16:10 | NUR ---
RT NOTES - SIMV 4 DECREASED RATED TO 4bpm. RN MARGARETH AWARE. NO RESPIRATORY DISTRESS NOTED. WILL CONTINUE MONITORING.
--- NOTE | 2019-07-10 16:40 | NUR ---
Nutrition F/U Admitting Diagnosis: Heart failure RD reviewed pt's current EMR record including diet Hx, physician notes, nursing notes, pertinent labs/meds/procedures, care trends, and care activity. Medical History Comment: PMH: DM type 2, diabetic retinopathy, legally blind, diabetic PVD, L BKA, diabetic CKD, CHF, hyperkalemia per physician's notes Pt also found s/p cardiopulmonary arrest 07/03/19, acute respiratory failure, pneumonia, lactic acidosis, sepsis (resolved), malnutrition, ESRD on HD per physician's notes Subjective Information: Pt was seen in bed with HD running, multiple RN/MD/and family at bedside. RN reported pt is tolerating well, two normal BM today. TPN support was running D30%, AA5.4% at 42 mL/hr and IL20% at 5 mL/hr via central line. Andreas scale 13, Lower medical R arm found w/ skin tear and medical R close to antecubital also found w/ skin tear per EMR. RN reported pt usual BG range from 170-200, state they are being controlled. Bed scale wt 151.9 #. Current Nutrition Support: TPN D30%, AA5.4% at 42 mL/hr, IL20% at 5mL/hr x2 days Pertinent Labs: BUN 38 H (improving), CRE 2.8 H (improving), BG 165 H (trending up), POC BG 206 H (trending up), K 3.8 WNL (improved), WBC 14.5 H (trending up), ALB 2.1 L (trending down) Ht: 5 Wt: 146#/66 kg BMI: 28.51 kg/m2 UBW: 135#/ 61kg %UBW: 108 %IBW: 138 IBW: 106#/48 kg. Adj IBW (obesity): 116#/53 kg; Adj IBW (BKA): 99#/45 kg Estimated Energy Expenditure (kcals/day) 1567 kcal/day (RMR using PSU 2003b for critical illness, intubation) Estimated Protein Required (g/day) 36-45 gm/day (0.8-1 gm/kg (ABW BKA) for CKD, geriatric, critical illness) Estimated Fluid Required (l/day) Per physician d/t ARF, CHF, CKD Problem/Etiology/Signs/Symptoms 1.Inadequate nutritional intakes related to critical illness/geriatric maintenance as evidenced by NPO status and TPN kcal being delivered. (*ongoing) Expected Outcomes/Goals - Monitor tolerance to TPN support w/ goal of pt meeting at least 50% of estimated nutritional needs, labs trending WNL, normal GI function, and skin integrity/wt maintenance Dietitian Recommendations * Recommend TPN D30%, AA5.4% at 70 ml/hr (goal rate), IL20% at 5 ml/hr daily via central line Provides: 1278 kcal/day, 45 gm protein/day, 1800 ml total volume/day, and GIR: 2.7 gm CHO/kg/min Meets: 82% of lower end of estimated caloric needs and 100% of upper end of estimated protein needs * RD to re-assess estimated nutritional needs and TPN recommendations in 2-3 days Follow Up High Risk: F/U in 2-3 days Signed: 07/10/19 at 1641 by Deanne FREEMAN <Co-Signature Required> Co-Signed: 07/10/19 at [address]
--- NOTE | 2019-07-10 16:45 | NUR ---
Dietitian Recommendations * Recommend TPN D30%, AA5.4% at 70 ml/hr (goal rate), IL20% at 5 ml/hr daily via central line Provides: 1278 kcal/day, 45 gm protein/day, 1800 ml total volume/day, and GIR: 2.7 gm CHO/kg/min Meets: 82% of lower end of estimated caloric needs and 100% of upper end of estimated protein needs * RD to re-assess estimated nutritional needs and TPN recommendations in 2-3 days LP, RD Please refer to Nutrition F/U for details. Signed: 07/10/19 at 1647 by Deanne FREEMAN <Co-Signature Required> Co-Signed: 07/10/19 at [address]
--- NOTE | 2019-07-10 19:30 | NUR ---
PM ASSESSMENT REPORT RECEIVED FROM MARGARETH ZALDIVAR. PT RECEIVED IN BED WITH EYES CLOSED, RESPONDING TO TACTILE STIMULATION. PT INTUBATED, VENT SETTINGS: SIMV 4, TV 450, FIO2 30%, PEEP 5, PS 10. SR ON MONITOR. JOSHUA MIDLINE IN PLACE INFUSING NS TKO, TPN @ 42 CC/HR, AND LIPIDS @ 5 CC/HR. RIJ HINA CATH NOTED FOR DIALYSIS ACCESS. L NARE NGT IN PLACE, TO DIAZ. BILATERAL SOFT WRIST RESTRAINTS IN PLACE, NO S/S OF INJURY NOTED. AGUILERA CATH IN PLACE DRAINING YELLOW URINE TO GRAVITY. HOB ELEVATED, BED IN LOWEST POSITION, CALL LIGHT IN REACH. WILL CONTINUE TO MONITOR PT.
--- NOTE | 2019-07-10 19:30 | NUR ---
BLEEDING BLEEDING NOTED TO R NARE. BLEEDING CONTROLLED WITH GUAZE PLACEMENT FOR PRESSURE. WILL CONTINUE TO MONITOR.
--- NOTE | 2019-07-10 19:31 | NUR ---
Closing Note Gave patient plan of care via SBAR to ZEN Fuentes receiving nurse.
--- NOTE | 2019-07-10 19:45 | NUR ---
VENT CHANGES PT TACHYPNEIC SIMV INCREASED TO 10 BY RT AT THIS TIME. WILL CONTINUE TO MONITOR PT.
[2019-07-10] MEDS: FAT EMULSIONS 250 ML IV SCH (20:23)
[2019-07-10] MEDS: FAMOTIDINE PF 20 MG/2 ML VIAL IVP SCH (20:25)
[2019-07-10] MEDS ORDERED: POTASSIUM CHLORIDE IV SCH ×10 (21:00)
[2019-07-10] MEDS ORDERED: MVI IV SCH ×10 (21:00)
[2019-07-10] MEDS ORDERED: [UNRECOGNIZED DRUG - OTHER] IV SCH ×10 (21:00)
[2019-07-10] MEDS ORDERED: TPN NEPHRAMINE IV SCH ×10 (21:00)
--- NOTE | 2019-07-10 21:00 | NUR ---
CENTRAL LINE DRESSING CHANGE DRESSING TO R [facility] CATH SOILED/BLOODY. DRESSING CHANGED USING ASEPTIC TECHNIQUE.
[2019-07-10] MEDS ORDERED: PIPERACILLIN/TAZOBACTAM 2.25 GM VIAL IV ONE (23:44)
[2019-07-11] VITALS (34 sets, daily range): BP systolic 108–166
[2019-07-11] MEDS ORDERED: PIPERACILLIN/TAZO 2.25G/DEX-IS 50 ML IV SCH (00:30)
[2019-07-11] MEDS: ALBUTEROL SULFATE 0.083% 2.5 MG/3 ML VIAL.NEB INH SCH ×4 (00:59→19:51)
[2019-07-11] MEDS: IPRATROPIUM BROM 0.5 MG/2.5 ML VIAL.NEB (ATROVENT) INH SCH ×4 (00:59→19:50)
[2019-07-11] MEDS: DEXAMETHASONE SOD PHOS 0.1% EYE OR EAR DROPS OP SCH ×6 (02:02→22:01)
[2019-07-11] MEDS: TOBRAMYCIN SULFATE 0.3% EYE DROPS 5 ML OP SCH ×6 (02:02→22:00)
[2019-07-11] MEDS: PIPERACILLIN/TAZO 2.25G/DEX-IS 50 ML IV SCH ×3 (06:10→21:59)
[2019-07-11] MEDS: INSULIN LISPRO SLIDING SCALE 100 UNITS/ML VIAL (humaLOG) SUBCUT PRN ×3 (06:12→23:09)
[2019-07-11 06:21] LABS: ANION GAP 6 (5-15); CHLORIDE 104 mmol/L (98-107); GLUCOSE 279 mg/dL (70-99); POTASSIUM 3.9 mmol/L (3.5-5.1); SODIUM SERUM 138 mmol/L (136-145)
[2019-07-11 06:22] LABS: ALANINE AMINOTRANSFERASE 98 U/L (12-78); ALBUMIN 2.1 g/dL (3.4-4.8); ASPARTATE AMINOTRANSFERASE 89 U/L (10-37); CALCIUM 7.8 mg/dL (8.4-11.0); CREATININE 2.33 mg/dL (0.55-1.30); PHOSPHORUS 3.3 mg/dL (2.7-4.5); TOTAL BILIRUBIN 0.8 mg/dL (0.0-1.0); TRIGLYCERIDES 184 mg/dL (30-150); UREA NITROGEN, BLOOD 25 mg/dL (8-21)
--- NOTE | 2019-07-11 07:16 | NUR ---
ENDORSEMENT BEDSIDE REPORT GIVEN TO JASMIN RN USING SBAR APPROACH.
--- NOTE | 2019-07-11 07:34 | NUR ---
Opening Note Received patient in bed and is connected to cardiac rehabilitation specialist with NSR. Patient intubated with settings SIMV 10, tidal volume 450, FiO2 30%, PEEP 5, pressure 10 breathing evenly and unlabored. No signs of distress noted. Patient has a right upper midline infusing TPN @ 52 ml/hr and lipids @ 5 ml ml/hr. Patient also has a right IJ for dialysis. Patient has an NGT. Patient has ortiz catheter in place draining yellow urine. Restraints in place. Skin intact. Safety precautions enforced.
[2019-07-11] MEDS: FUROSEMIDE 40 MG/4 ML VIAL IVP SCH ×2 (08:17→21:58)
[2019-07-11] MEDS: MINERAL OIL 30 ML UDC NG SCH ×2 (08:17→21:59)
[2019-07-11] MEDS: NITROGLYCERIN 1 INCH (GM) OINT. TP SCH ×2 (08:18→21:59)
[2019-07-11] MEDS: INSULIN GLARGINE 100 UNITS/ML 10 ML VIAL SUBCUT SCH (08:21)
[2019-07-11] MEDS: amLODIPine BESYLATE 10 MG TABLET PO SCH (08:22)
[2019-07-11] MEDS: HEPARIN SODIUM,PORCINE 5000 UNITS/ML VIAL SUBCUT SCH ×2 (08:23→21:00)
--- NOTE | 2019-07-11 08:52 | NUR ---
MD Rounds Dr. Winslow @ bedside. Informed MD regarding 500 ml output via NGT from foreign clerk and 50 ml output at this time. MD ordered to pause tubefeeding for now.
--- NOTE | 2019-07-11 09:40 | NUR ---
MD Rounds Dr. Caba @ bedside for examination.
--- NOTE | 2019-07-11 11:05 | NUR ---
RT NOTES Vent settings to SIMV [address] Caba's order.
--- NOTE | 2019-07-11 11:45 | NUR ---
Nutrition Note RD relayed recent TPN rec to pharmD: TPN D30%, AA5.4% at 70 ml/hr, IL20% at 5 ml/hr daily via central line.
--- NOTE | 2019-07-11 13:33 | NUR ---
Dialysis dental floss packer @ bedside. Family also @ bedside. Patient in no signs of distress.
[2019-07-11] MEDS ORDERED: HEPARIN SODIUM, PORCINE 10,000 UNITS/ 10 ML VIAL MC ONE ×3 (13:45→14:00)
--- NOTE | 2019-07-11 13:55 | NUR ---
Per electrical helper, catheter stopped working. sign erector spoke with Dr. Patrick. ordered to call surgeon for dialysis catheter.
[2019-07-11] MEDS ORDERED: HEPARIN SODIUM,PORCINE 5000 UNITS/ML VIAL ONE (13:56)
--- NOTE | 2019-07-11 14:35 | NUR ---
MD Rounds Dr. Winslow @ bedside for examination.
--- NOTE | 2019-07-11 14:40 | NUR ---
MD Rounds Dr. Abarca @ bedside for examination.
--- NOTE | 2019-07-11 15:00 | NUR ---
CHG CHG bath and linens changed. Patient tolerated procedure well.
--- NOTE | 2019-07-11 16:10 | NUR ---
MD Rounds Dr. Boyle @ bedside for examination. New orders received.
--- NOTE | 2019-07-11 18:20 | NUR ---
MD Rounds Dr. Patrick @ bedside. New orders received.
[2019-07-11] MEDS ORDERED: BISACODYL 10 MG/SUPPOSITORY RC PRN (18:45)
--- NOTE | 2019-07-11 19:11 | NUR ---
Closing Note Endorsed patient to cnc machinist 2nd shift RN using SBAR. Patient in no signs of distress.
--- NOTE | 2019-07-11 19:50 | NUR ---
Opening Note Pt in bed, confused/lethargic. Pt is SR on the monitor. Vent settings: SIMV 6, TV 450, FIO2 30%, PEEP 5, PS 10. No s/s of distress noted. VSS. Pt has JOSHUA midline in place running TPN/Lipids. IV site C/D/I. Rt IJ Derik catheter in place for dialysis. Pt received dialysis today, 1.2L out. No s/s of infiltration noted. Farrar catheter in place draining urine to gravity. Pt has (L)NGT set to low intermittent suction. ABD remains distended. Pt has restraints bilaterally. No s/s of skin breakdown noted. Skin intact, Q2H turns in place. Bed locked in lowest position, call light in reach, and safety precautions in place. Will continue to monitor.
[2019-07-11] MEDS: FAMOTIDINE PF 20 MG/2 ML VIAL IVP SCH (21:58)
[2019-07-11] MEDS: NA PHOS IV SCH ×10 (22:04)
[2019-07-11] MEDS: TPN NEPHRAMINE IV SCH ×10 (22:04)
[2019-07-11] MEDS: SODIUM CHLORIDE IV SCH ×10 (22:04)
[2019-07-11] MEDS: [UNRECOGNIZED DRUG - OTHER] IV SCH ×10 (22:04)
[2019-07-11] MEDS: FAT EMULSIONS 250 ML IV SCH (22:05)
--- NOTE | 2019-07-11 23:37 | NUR ---
RN Rounds Pt in bed asleep. No s/s of distress noted. Pt VSS. Will continue to monitor.
[2019-07-12] VITALS (38 sets, daily range): BP systolic 137–185
[2019-07-12] MEDS: ALBUTEROL SULFATE 0.083% 2.5 MG/3 ML VIAL.NEB INH SCH ×3 (01:39→19:53)
[2019-07-12] MEDS: IPRATROPIUM BROM 0.5 MG/2.5 ML VIAL.NEB (ATROVENT) INH SCH ×4 (01:40→19:53)
[2019-07-12] MEDS: DEXAMETHASONE SOD PHOS 0.1% EYE OR EAR DROPS OP SCH ×6 (02:02→22:37)
[2019-07-12] MEDS: TOBRAMYCIN SULFATE 0.3% EYE DROPS 5 ML OP SCH ×6 (02:02→22:37)
--- NOTE | 2019-07-12 03:00 | NUR ---
RN Rounds Pt in bed asleep, no s/s of distress noted. Pt cleaned and changed. Linens changed. Pt tolerated well. Will continue to monitor.
[2019-07-12 05:38] LABS: BASOPHILS # (AUTO) 0.2 K/uL (0.0-0.2); EOSINOPHILS # (AUTO) 0.6 K/uL (0.0-0.4); EOSINOPHILS % (AUTO) 3.7 % (0.0-4.0); HEMATOCRIT 25.7 % (36-54); HEMOGLOBIN 8.6 g/dL (14.0-18.0); LYMPHOCYTES # (AUTO) 1.3 K/uL (1.0-5.5); LYMPHOCYTES % (AUTO) 7.6 % (20.5-51.5); MEAN CORPUSCULAR HEMOGLOBIN 32 pg (27-31); MEAN CORPUSCULAR HGB CONC 34 % (32-36); MEAN CORPUSCULAR VOLUME 95 fL (79.0-98.0); MONOCYTES # (AUTO) 1.7 K/uL (0.0-1.0); MONOCYTES % (AUTO) 10.3 % (1.7-9.3); NEUTROPHILS # (AUTO) 12.8 K/uL (1.8-7.7); NEUTROPHILS % (AUTO) 77.4 % (40.0-70.0); PLATELET COUNT (AUTO) 206 K/uL (130-430); RED BLOOD CELL COUNT(AUTO) 2.69 MIL/uL (4.2-6.2); RED CELL DISTRIBUTION WIDTH 14.2 % (9.0-15.0); WHITE BLOOD COUNT (AUTO) 16.6 K/uL (4.8-10.8)
[2019-07-12] MEDS: PIPERACILLIN/TAZO 2.25G/DEX-IS 50 ML IV SCH ×3 (05:40→22:37)
[2019-07-12] MEDS: INSULIN LISPRO SLIDING SCALE 100 UNITS/ML VIAL (humaLOG) SUBCUT PRN ×4 (05:41→23:52)
[2019-07-12 05:59] LABS: ALANINE AMINOTRANSFERASE 114 U/L (12-78); ANION GAP 8 (5-15); ASPARTATE AMINOTRANSFERASE 91 U/L (10-37); CALCIUM 7.7 mg/dL (8.4-11.0); CHLORIDE 102 mmol/L (98-107); CREATININE 2.45 mg/dL (0.55-1.30); GLUCOSE 213 mg/dL (70-99); PHOSPHORUS 2.9 mg/dL (2.7-4.5); SODIUM SERUM 137 mmol/L (136-145); TOTAL BILIRUBIN 0.6 mg/dL (0.0-1.0); UREA NITROGEN, BLOOD 23 mg/dL (8-21)
--- NOTE | 2019-07-12 06:41 | NUR ---
Closing Note Pt in bed asleep. No s/s of distress noted. Pt has TPN/Lipids running through PICC line. No s/s of infiltration noted, C/D/I. Pt (L) NGT set to low intermittent suction. ABD remains distended. Q2H turns done. Bed locked in lowest position, call light in reach, and safety precautions in place. Will endorse to oncoming RN.
--- NOTE | 2019-07-12 07:00 | NUR ---
OPENING NOTE PT IN BED CONFUSED AND LETHARGIC. SINUS RHYTHM ON MONITOR. VENTILATOR SETTING SIMV 6, TIDAL VOLUME 450, FIO2 30% PEEP 5 PRESSURE SUPPORT 10. NO SIGNS OF DISTRESS. RIGHT UPPER ARM MIDLINE RUNNING TPN AND LIPIDS RUNNING. SITE CLEAN DRY AND INTACT. RIGHT IJ HINA CATHETER IN PLACE FOR DIALYSIS. AWAITING MD GENTILE TO EVALUATE CATHETER. AGUILERA CATHETER SECURED IN PLACE DRAINING TO GRAVITY. LEFT NG TUBE IN PLACE SET TO LOW INTERMITTENT SUCTION. ABDOMEN RIGID AND DISTENDED. BILATERAL WRIST RESTRAINTS IN PLACE. CAP REFILL< 3 SEC. NO SKIN BREAKDOWN NOTED. 2 SKIN TEARS ON RIGHT FOREARM. DRESSING IN PLACE. SKIN INTACT IN ALL OTHER AREAS. Q2H TURNING SCHEDULE. BED IN LOWEST POSITION. CALL LIGHT WITHIN REACH. SAFETY PRECAUTIONS IN PLACE. WILL CONTINUE TO MONITOR
--- NOTE | 2019-07-12 07:10 | NUR ---
Endorsement Report given to oncoming RN at bedside via SBAR approach.
[2019-07-12] MEDS ORDERED: INSULIN GLARGINE 100 UNITS/ML 10 ML VIAL SUBCUT SCH (09:00)
--- NOTE | 2019-07-12 09:10 | NUR ---
RADIOLOGY AT BED SIDE TO PERFORM ABD XRAY. NG TUBE DISLODGED BY ACCIDENT DURING XRAY. NG TUBE REINSERTED. PLACEMENT CHECKED THROUGH AUSCULTATION. PT TOLERATED PROCEDURE WELL.
--- NOTE | 2019-07-12 09:40 | NUR ---
RESPIRATORY UPDATE PT PLACED ON CPAP PER RT GARRETT.
--- NOTE | 2019-07-12 09:45 | NUR ---
RADIOLOGY AT BEDSIDE TO COMPLETE ABD XRAY. Addendum: 07/12/19 at 1739 by Cayla Walsh RN NG TUBE PLACEMENT VERIFIED
[2019-07-12] MEDS: FUROSEMIDE 40 MG/4 ML VIAL IVP SCH ×2 (09:50→20:10)
[2019-07-12] MEDS: NITROGLYCERIN 1 INCH (GM) OINT. TP SCH ×2 (09:50→20:09)
[2019-07-12] MEDS: amLODIPine BESYLATE 10 MG TABLET PO SCH (09:55)
[2019-07-12] MEDS: MINERAL OIL 30 ML UDC NG SCH ×2 (09:56→20:08)
[2019-07-12] MEDS: hydrALAZINE HCL 20 MG/ML VIAL IVP PRN (11:21)
--- NOTE | 2019-07-12 12:40 | NUR ---
RN UPDATE PT SLEEPING. AT BEDSIDE. NO S/S OF DISTRESS. PT TOLERATING CPAP VENTILATION.
[2019-07-12] MEDS: HEPARIN SODIUM,PORCINE 5000 UNITS/ML VIAL SUBCUT SCH ×2 (13:49→20:11)
--- NOTE | 2019-07-12 14:15 | NUR ---
MD [facility] AT BEDSIDE. ORDERS UPDATED.
[2019-07-12] MEDS ORDERED: INSULIN GLARGINE 100 UNITS/ML 10 ML VIAL SUBCUT ONE (15:00)
--- NOTE | 2019-07-12 16:00 | NUR ---
RN UPDATE CHG BATH PERFORMED. LINENS CHANGED. PT TOLERATED. PT TEMPERATURE 99.4. COOLING MEASURES INITIATED.
--- NOTE | 2019-07-12 19:15 | NUR ---
PM ASSESSMENT Pt in bed resting comfortably with eyes closed. No signs of acute distress or discomfort noted. VSS. Pt orally intubated, size 7.5, lip line 24 cm, on CPAP. Pt tolerating well with O2 sats @ 100% and even and unlabored breathing. Pt has a JOSHUA midline, infusing TPN, Lipids, and NS @ TKO. Pt also has a R IJ for dialysis cath. Pt has an NG tube through the L nare connected to LIS. Farrar cath noted draining urine to gravity. Bilateral wrist restraints, no injury noted. Bed is locked and in lowest position, call light within reach, will cont to monitor pt.
--- NOTE | 2019-07-12 19:21 | NUR ---
CLOSING NOTE PT RESTING IN BED. NO SIGNS OR SYMPTOMS OF DISTRESS NOTED. TPN AND LIPIDS RUNNING IN RU MIDLINE PICC LINE. NO S/S OF INFILTRATION. NGT IN LEFT NARE SET TO LOW INTERMITTENT SUCTION. ABD REMAINS RIGID AND DISTENDED. Q2H TURNING COMPLETED. BED LOCKED IN LOWEST POSITION, CALL LIGHT IN REACH, AND SAFETY PRECAUTIONS IN PLACE. SBAR REPORT AND CARE ENDORSED TO KENDRA
[2019-07-12] MEDS: FAMOTIDINE PF 20 MG/2 ML VIAL IVP SCH (20:09)
[2019-07-12] MEDS: NA PHOS IV SCH ×10 (20:12)
[2019-07-12] MEDS: TPN NEPHRAMINE IV SCH ×10 (20:12)
[2019-07-12] MEDS: FAT EMULSIONS 250 ML IV SCH (20:12)
[2019-07-12] MEDS: [UNRECOGNIZED DRUG - OTHER] IV SCH ×10 (20:12)
[2019-07-12] MEDS: SODIUM CHLORIDE IV SCH ×10 (20:12)
--- NOTE | 2019-07-12 20:20 | NUR ---
Pt's vent settings changed to SIMV 8, TV 450, FiO2 30%, PS 10, and PEEP of 5 by RT. Pt tolerating vent settings well, will cont to monitor pt.
--- NOTE | 2019-07-12 22:00 | NUR ---
Pt in bed with eyes closed resting comfortably, no signs of acute distress or discomfort noted. Bed is locked and in lowest position, call light within reach, will cont to monitor pt.
[2019-07-13] VITALS (34 sets, daily range): BP systolic 104–164
[2019-07-13] MEDS: ALBUTEROL SULFATE 0.083% 2.5 MG/3 ML VIAL.NEB INH SCH ×4 (00:27→20:04)
[2019-07-13] MEDS: IPRATROPIUM BROM 0.5 MG/2.5 ML VIAL.NEB (ATROVENT) INH SCH ×4 (00:27→20:04)
--- NOTE | 2019-07-13 02:03 | NUR ---
Pt in bed with eyes closed resting comfortably. No signs of acute distress or discomfort noted. Pt repositioned at this time. Pt tolerated well. Will cont to monitor pt.
[2019-07-13] MEDS: TOBRAMYCIN SULFATE 0.3% EYE DROPS 5 ML OP SCH ×4 (02:22→14:35)
[2019-07-13] MEDS: DEXAMETHASONE SOD PHOS 0.1% EYE OR EAR DROPS OP SCH ×4 (02:22→14:35)
[2019-07-13 05:45] LABS: BASOPHILS # (AUTO) 0.1 K/uL (0.0-0.2); BASOPHILS % (AUTO) 0.8 % (0.0-2.0); EOSINOPHILS # (AUTO) 0.8 K/uL (0.0-0.4); EOSINOPHILS % (AUTO) 5.6 % (0.0-4.0); HEMATOCRIT 25.3 % (36-54); HEMOGLOBIN 8.5 g/dL (14.0-18.0); LYMPHOCYTES # (AUTO) 1.6 K/uL (1.0-5.5); LYMPHOCYTES % (AUTO) 11.5 % (20.5-51.5); MEAN CORPUSCULAR HEMOGLOBIN 32 pg (27-31); MEAN CORPUSCULAR HGB CONC 34 % (32-36); MEAN CORPUSCULAR VOLUME 95 fL (79.0-98.0); MONOCYTES # (AUTO) 1.9 K/uL (0.0-1.0); MONOCYTES % (AUTO) 13.4 % (1.7-9.3); NEUTROPHILS # (AUTO) 9.5 K/uL (1.8-7.7); NEUTROPHILS % (AUTO) 68.7 % (40.0-70.0); PLATELET COUNT (AUTO) 236 K/uL (130-430); RED BLOOD CELL COUNT(AUTO) 2.65 MIL/uL (4.2-6.2); RED CELL DISTRIBUTION WIDTH 13.9 % (9.0-15.0); WHITE BLOOD COUNT (AUTO) 13.9 K/uL (4.8-10.8)
--- NOTE | 2019-07-13 06:00 | NUR ---
Pt's vent settings changed to CPAP PEEP 5, FIO2 30% and PS 10 by RT. Pt tolerating settings well. Will cont to monitor pt.
[2019-07-13 06:06] LABS: ALANINE AMINOTRANSFERASE 111 U/L (12-78); ANION GAP 8 (5-15); ASPARTATE AMINOTRANSFERASE 84 U/L (10-37); CHLORIDE 102 mmol/L (98-107); CREATININE 2.99 mg/dL (0.55-1.30); GLUCOSE 122 mg/dL (70-99); POTASSIUM 4.4 mmol/L (3.5-5.1); SODIUM SERUM 137 mmol/L (136-145); TOTAL BILIRUBIN 0.6 mg/dL (0.0-1.0); UREA NITROGEN, BLOOD 30 mg/dL (8-21)
[2019-07-13] MEDS: PIPERACILLIN/TAZO 2.25G/DEX-IS 50 ML IV SCH ×2 (06:13→14:36)
--- NOTE | 2019-07-13 07:20 | NUR ---
ENDORSEMENT Report given to oncoming dayshift RN using SBAR format and pt care was endorsed. No signs of acute distress or discomfort noted.
--- NOTE | 2019-07-13 08:11 | NUR ---
AM ASSESSMENT PT SLEEPING. PT INTUBATED 7.5 ET TUBE, LIP LINE 24. PT ON CPAP FIO2 30% PEEP 5 PS 10. PT TOLERATING CPAP WELL. LUNG SOUNDS CLEAR. NO SIGNS AND SYMPTOMS OF DISTRESS. RIGHT UPPER MIDLINE RUNNING TPN, LIPIDS AND SALINE TKO. DRESSING CLEAN DRY AND INTACT. RIGHT IJ HINA CATHETER IN PLACE. MD GENTILE WILL EVALUATE FUNCTION TODAY. LAST DIALYSIS 07/11. NG TUBE IN LEFT NARE SET TO LOW INTERMITTENT SUCTION IN PLACE. ABDOMEN RIGID AND DISTENDED. AGUILERA CATHETER IN PLACE DRAINING TO GRAVITY. BILATERAL WRIST RESTRAINTS IN PLACE. PULSES PALPABLE. CAP REFILL <3 SECONDS. NO SKIN BREAKDOWN AT RESTRAINT SITE. 2 SKIN TEARS ON RIGHT FOREARM DRESSING IN PLACE. SKIN IN ALL OTHER AREAS INTACT. BED IN LOWEST POSITION. CALL LIGHT WITH IN REACH. SAFETY PRECAUTIONS IN PLACE. WILL CONTINUE TO MONITOR.
--- NOTE | 2019-07-13 08:40 | NUR ---
Diprivan Titration Witnessed diprivan being titrated down to [address] Nunez in to see pt. Orders left. Addendum: 07/13/19 at 1057 by Zina Gonzalez RN Above entry made on the wrong patient.
--- NOTE | 2019-07-13 09:00 | NUR ---
MD ROUNDS MD RAMIREZ AT BEDSIDE. WILL REORDER TUBE FEEDING.
[2019-07-13] MEDS: FUROSEMIDE 40 MG/4 ML VIAL IVP SCH ×2 (09:02→23:58)
[2019-07-13] MEDS: NITROGLYCERIN 1 INCH (GM) OINT. TP SCH (09:04)
[2019-07-13] MEDS: INSULIN GLARGINE 100 UNITS/ML 10 ML VIAL SUBCUT SCH (09:06)
[2019-07-13] MEDS: HEPARIN SODIUM,PORCINE 5000 UNITS/ML VIAL SUBCUT SCH (09:08)
[2019-07-13] MEDS ORDERED: HEPARIN SODIUM,PORCINE 5000 UNITS/ML VIAL IVP ONE (09:45)
--- NOTE | 2019-07-13 09:45 | NUR ---
ROUNDS MD ROJAS AT BEDSIDE WITH AND SON. MD ROJAS DISCUSSING POSSIBLE EXTUBATION THIS AM. SON REQUESTS TIME TO DISCUSS OPTIONS WITH FAMILY.
[2019-07-13] MEDS: amLODIPine BESYLATE 10 MG TABLET PO SCH (10:14)
[2019-07-13] MEDS: MINERAL OIL 30 ML UDC NG SCH (10:15)
--- NOTE | 2019-07-13 10:20 | NUR ---
RN UPDATE FAMILY REFUSES TRACHEOSTOMY. FAMILY REQUESTS INTUBATION IF RESPIRATORY FAILURE OCCURS. MD ROJAS STATES THAT SHE WILL ATTEMPT EXTUBATION AFTER DIALYSIS.
[2019-07-13] MEDS ORDERED: ALTEPLASE 2 MG VIAL MC ONE (10:30)
--- NOTE | 2019-07-13 10:30 | NUR ---
RN UPDATE GROUND CREW LINESMAN AT BEDSIDE. WILL CHECK CATHETER FLOW AFTER ALTEPLASE.
[2019-07-13] MEDS: INSULIN LISPRO SLIDING SCALE 100 UNITS/ML VIAL (humaLOG) SUBCUT PRN ×2 (11:29→18:16)
--- NOTE | 2019-07-13 11:35 | NUR ---
RN UPDATE MERCHANDISING ASSISTANT CHARISMA STATES HINA CATH VENOUS PORT FLOWS WELL. ARTERIAL CATHETER HAS NO FLOW. HE WILL ATTEMPT DIALYSIS THROUGH VENOUS PORT.
--- NOTE | 2019-07-13 14:05 | NUR ---
MD ROUNDS MD Desire GOLDMAN (CARDIOLOGY) AT BEDSIDE. NO NEW ORDERS
--- NOTE | 2019-07-13 14:30 | NUR ---
Dr. Orellana/ Derik replacement Spoke with Dr. Orellana while he was in surgery at [facility] and informed him that we are waiting for a derik cath replacement since yesterday so we can dialyze this patient and then extubate the pt. He said he is busy and couldn't say when he would be over, but he would come "later". He is aware pt is waiting for dialysis later tonight. Simone rn dialysis came this morning to attempt HD after instilling cath vinnie to both ports of derik. Unable to complete dialysis, however did remove 700cc fluid in 40 minutes. Simone said to call company once Derik is replaced to finish HD. Adam sup aware.
--- NOTE | 2019-07-13 15:15 | NUR ---
RN UPDATE TUBE FEEDING INITIATED. NO SIGNS/SYMPTOMS OF DISTRESS. WILL CONTINUE TO MONITOR
--- NOTE | 2019-07-13 15:25 | NUR ---
RT note: 1525 Pt placed on SIMV 8, Vt 450, PS 10, and PEEP 5 per order. Pt tolerating well. Will continue to monitor pt. RN made aware. Addendum: 07/13/19 at 1545 by Lindsey Cook RT Amended: Links added.
--- NOTE | 2019-07-13 16:30 | NUR ---
Notified Dr. Caba that the po has not been changed yet and that Dr. Orellana would be in later today. Orders left to place pt back to SIMV for now and then in the AM back to CPAP for possible extubation in the AM. Bedside RN and Rt made aware.
--- NOTE | 2019-07-13 16:30 | NUR ---
RN UPDATE CHG BATH GIVEN. LINENS CHANGED. PT TOLERATED WELL. NO SIGNS OR SYMPTOMS OF DISTRESS. AT BEDSIDE. BED IN LOWEST POSITION. CALL LIGHT WITHIN REACH. SAFETY PRECAUTIONS IN PLACE. WILL CONTINUE TO MONITOR.
--- NOTE | 2019-07-13 17:09 | NUR ---
Nutrition F/U Admitting Diagnosis: Heart failure RD reviewed pt's current EMR record including diet Hx, physician notes, nursing notes, pertinent labs/meds/procedures, care trends, and care activity. PMH: DM type 2, diabetic retinopathy, legally blind, diabetic PVD, L BKA, diabetic CKD, CHF, hyperkalemia per physician's notes Pt also found s/p cardiopulmonary arrest 07/03/19, acute respiratory failure, pneumonia, lactic acidosis, sepsis (resolved), malnutrition, ESRD on HD per physician's notes Current Nutrition Support: TPN D30%, AA5.4% at 52 mL/hr, IL20% at 5mL/hr x2 days Subjective Information: Pt was seen in bed with HD running and RN at bedside. TPN was infusing D30%, AA5.4% at 52mL/hr and IL20% at 5mL/hr. Bed scale wt 169.1#. RN reported minor skin tears on arm and distended abdomen. RN reported pt will re-start EN support once TPN has completed. Ht: 5 Wt: 146#/66 kg BMI: 28.51 kg/m2 UBW: 135#/ 61kg %UBW: 108 %IBW: 138 IBW: 106#/48 kg. Adj IBW (obesity): 116#/53 kg; Adj IBW (BKA): 99#/45 kg NEW: Estimated Energy Expenditure (kcals/day) 1342 kcal/day (RMR using PSU 2003b for critical illness, intubation) NEW: Estimated Protein Required (g/day) 54-63 gm/day (1.2-1.5 gm/kg (ABW BKA) for ESRD on HD) Estimated Fluid Required (l/day) Per physician d/t ARF, CHF, CKD Problem/Etiology/Signs/Symptoms 1. Inadequate nutritional intakes related to critical illness/geriatric maintenance as evidenced by NPO status and TPN kcal being delivered. (*ongoing) Expected Outcomes/Goals - Monitor tolerance to TPN support w/ goal of pt meeting at least 75% of estimated nutritional needs, labs trending WNL, normal GI function, and skin integrity/wt maintenance. Dietitian Recommendations * Continue TPN D30%, AA5.4% at 70 ml/hr (goal rate), IL20% at 5 ml/hr daily via central line Provides: 1278 kcal/day, 45 gm protein/day, 1800 ml total volume/day, and GIR: 2.7 gm CHO/kg/min Meets: 95% of estimated caloric needs and 83% of lower end of estimated protein needs If/when medically appropriate, recommend Nepro 1.8 at 32 mL/hr, Free Water Flush: per physician Provides: 1382 kcal/day, 62 gm of protein/day, 558mL of fluid/day Meets: 103% of estimated caloric needs and 98% of upper estimated protein needs. Follow Up High Risk: F/U in 2-3 days Signed: 07/13/19 at 1710 by Deanne FREEMAN <Co-Signature Required> Co-Signed: 07/13/19 at [address]
--- NOTE | 2019-07-13 17:11 | NUR ---
Dietitian Recommendations * Continue TPN D30%, AA5.4% at 70 ml/hr (goal rate), IL20% at 5 ml/hr daily via central line Provides: 1278 kcal/day, 45 gm protein/day, 1800 ml total volume/day, and GIR: 2.7 gm CHO/kg/min Meets: 95% of estimated caloric needs and 83% of lower end of estimated protein needs If/when medically appropriate, recommend Nepro 1.8 at 32 mL/hr, Free Water Flush: per physician Provides: 1382 kcal/day, 62 gm of protein/day, 558mL of fluid/day Meets: 103% of estimated caloric needs and 98% of upper estimated protein needs. Please refer to Nutrition F/U for details. Signed: 07/13/19 at 1712 by Deanne FREEMAN <Co-Signature Required> Co-Signed: 07/13/19 at [address]
--- NOTE | 2019-07-13 19:30 | NUR ---
CLOSING NOTE PT IN BED ASLEEP. NO SIGNS OR SYMPTOMS OF DISTRESS NOTED. TPN, LIPIDS, AND SALINE RUNNING IN PICC LINE IN RU EXTREMITY. NO SIGNS OF INFILTRATION. DRESSING CLEAN DRY AND INTACT. LEFT NGT RUNNING NEPHRO TUBE FEEDING 30 ML/HR. ABDOMEN DISTENDED. Q2H HOUR TURNING SCHEDULE COMPLETE. BED LOCKED IN LOWEST POSITION. SAFETY PRECAUTIONS IN PLACE. CALL LIGHT WITH IN REACH. SBAR REPORT GIVEN AND CARE ENDORSED TO NORBERT ZALDIVAR
--- NOTE | 2019-07-13 20:00 | NUR ---
ASSESSMENT Pt opens eyes to verbal stimulus. Pt orally intubated, tolerating current vent settings. Pt has rhonchi bilaterally, clears with suctioning. Midline PICC present in right upper arm. Dressing dry and intact, no swelling or redness noted @ site. Right IJ dialysis catheter present, dressing dry and intact. No redness or swelling noted @ site. Dr Orellana to change cath due to malfunction. Pt with left below the knee amputation. Bilateral wrist restraints in use, pt unable to follow direction. Left nare nasogastric tube in place. Placement checked. Continuous feeding in progress.
[2019-07-13] MEDS ORDERED: [UNRECOGNIZED DRUG - OTHER] IV SCH ×10 (21:00)
[2019-07-13] MEDS ORDERED: NA PHOS IV SCH ×10 (21:00)
[2019-07-13] MEDS ORDERED: TPN NEPHRAMINE IV SCH ×10 (21:00)
[2019-07-13] MEDS ORDERED: SODIUM CHLORIDE IV SCH ×10 (21:00)
--- NOTE | 2019-07-13 23:30 | NUR ---
DR KRUPA Orellana called unable to change Derik cath tonight. Will be here in AM to change Derik. Dr Orellana was notified regarding plan to have hemodialysis prior to extubation.
[2019-07-13] MEDS: FAMOTIDINE PF 20 MG/2 ML VIAL IVP SCH (23:58)
[2019-07-14] VITALS (35 sets, daily range): BP systolic 72–169
--- NOTE | 2019-07-14 | NUR ---
i have assumed the care of the pt.pt.presents vent.vent-settings;t/v;450,fio-2%=30%,simv:8,peep;5,p/s;10.pt.tolerating the settings. pt.presents groshong-cath;location;rt.int-jugular.intact;patent.utilized for h/d access.pt.presents iv access;pt.receiving the administration iv fluids,tpn/lipids.i have assessed the blood glucose;value;203mg/dl.pt.presents ortiz cath;intact;patent:urine content present.pt.presents;lt.bka. old.pt.presents restraints;wrists;bilateral.skin/circulation assessed;intact.w/in normal limits.pt.assessed for cleanliness.pt.repositioned. call light/telephone placed w/in reach of the pt. Addendum: 07/14/19 at 0525 by Randall Su RN o2-sat%=100%.per flacc;pain mgx;pt.absent facial grimaces/body posturing.
[2019-07-14] MEDS: NITROGLYCERIN 1 INCH (GM) OINT. TP SCH ×3 (00:06→21:17)
[2019-07-14] MEDS: TOBRAMYCIN SULFATE 0.3% EYE DROPS 5 ML OP SCH ×8 (00:07→23:01)
[2019-07-14] MEDS: DEXAMETHASONE SOD PHOS 0.1% EYE OR EAR DROPS OP SCH ×8 (00:08→23:01)
[2019-07-14] MEDS: MINERAL OIL 30 ML UDC NG SCH ×3 (00:13→21:17)
[2019-07-14] MEDS: HEPARIN SODIUM,PORCINE 5000 UNITS/ML VIAL SUBCUT SCH ×3 (00:15→21:29)
--- NOTE | 2019-07-14 00:30 | NUR ---
REPORT Care transferred to Randall ZALDIVAR.
[2019-07-14] MEDS: INSULIN LISPRO SLIDING SCALE 100 UNITS/ML VIAL (humaLOG) SUBCUT PRN ×4 (00:35→17:56)
[2019-07-14] MEDS: PIPERACILLIN/TAZO 2.25G/DEX-IS 50 ML IV SCH ×4 (00:39→22:59)
[2019-07-14] MEDS: FAT EMULSIONS 250 ML IV SCH ×2 (00:42→21:31)
[2019-07-14] MEDS: IPRATROPIUM BROM 0.5 MG/2.5 ML VIAL.NEB (ATROVENT) INH SCH ×3 (00:57→13:42)
[2019-07-14] MEDS: ALBUTEROL SULFATE 0.083% 2.5 MG/3 ML VIAL.NEB INH SCH ×3 (00:57→13:43)
--- NOTE | 2019-07-14 02:00 | NUR ---
pt.assessed.v/s assessed;values w/in normal limits.vent setting reviewed;pt.tolerating the vent settings.i have assessed the iv access intact;patent;iv fluids;tpn/lipids infusing.i have assessed the ett/ngt tube;intact;patent.ng-t feed infusing. i have attended to the oral/ett care.i have attended to the oral/ett suction.po cath assessed;intact;patent.ortiz cath assessed intact;patent;urine content present.pt.assessed for cleanliness.pt.repositioned.call light/telephone placed w/in reach of the pt. Addendum: 07/14/19 at 0524 by Randall Su RN o2-sat%=100%.per flacc;pain mgx;pt.absent facial grimaces/body posturing.
--- NOTE | 2019-07-14 04:00 | NUR ---
pt.assessed.v/s assessed;w/in normal limits.vent-setting reviewed.pt.tolerating the vent-settings; present,assessing the pt. i have attended to the oral/ett-care.i have attended to the oral/ett suction.i have assessed the iv access intact;patent;i have assessed the groshong cath:location rt.int-jugular.intact;patent.i have assessed the ng-t;lt.nares;intact;patent.skin intact.restraints;wrist; bilateral intact;skin circulation w/in normal limits.i have as the pt ortiz cath;intact;patent;urine content present.pt.assessed for cleanliness.pt.repositioned.call light/telephone placed w/in the reach of the pt. Addendum: 07/14/19 at 0523 by Randall Su RN 02-sat%=100%.per flacc;pain mgx;pt.absent facial grimaces/body posturing.
[2019-07-14] MEDS: LORazepam 2 MG/ML VIAL IVP PRN ×3 (05:46→17:20)
[2019-07-14 06:20] LABS: ANION GAP 9 (5-15); CALCIUM 8.3 mg/dL (8.4-11.0); CHLORIDE 101 mmol/L (98-107); CREATININE 3.16 mg/dL (0.55-1.30); GLUCOSE 180 mg/dL (70-99); PHOSPHORUS 3.4 mg/dL (2.7-4.5); POTASSIUM 4.2 mmol/L (3.5-5.1); SODIUM SERUM 135 mmol/L (136-145); UREA NITROGEN, BLOOD 35 mg/dL (8-21)
--- NOTE | 2019-07-14 07:16 | NUR ---
Opening Note Patient received in bed @ this time. Patient on CPAP 01/05, tolerating well. No signs of distress noted. Patient has a right upper arm midline infusing TPN @ 52 ml/hr and lipids @ 5 ml/hr. Patient also has a right IJ in place for dialysis. Patient has a left nare NGT in place infusing nephro @ 30 ml/hr. Patient has a ortiz catheter in place draining yellow urine. Restraints in place. Safety precautions in place.
[2019-07-14] MEDS: FUROSEMIDE 40 MG/4 ML VIAL IVP SCH ×2 (08:22→21:16)
[2019-07-14] MEDS: amLODIPine BESYLATE 10 MG TABLET PO SCH (08:23)
[2019-07-14] MEDS: INSULIN GLARGINE 100 UNITS/ML 10 ML VIAL SUBCUT SCH (08:28)
--- NOTE | 2019-07-14 09:10 | NUR ---
MD Rounds Dr. Winslow @ bedside for examination. No new orders received.
--- NOTE | 2019-07-14 09:15 | NUR ---
MD Rounds Dr. Neil @ bedside for examination. To resume dialysis order from yesterday after replacement of dialysis catheter.
--- NOTE | 2019-07-14 09:15 | NUR ---
Pt agitated and shaking head back and forth. Dr Orellana on his way over to replace po cath. Pt RR 35 and HR 95. 02 sats 98%. Requested RT to place pt back to [facility].
--- NOTE | 2019-07-14 09:25 | NUR ---
RT NOTES- SIMV 8 DUE TO INCREASING OF RESPIRATORY RATE (HIGH 30s) AND AGITATIONS CHANGED VENT SETTING BACK TO SIMV 8 AT THIS TIME. ZEN VANCE NOTIFIED. WILL CONTINUE MONITORING.
--- NOTE | 2019-07-14 09:40 | NUR ---
Dr. Orellana @ bedside for dialysis catheter insertion. Catheter placed on left internal jugular. Dressing placed and is c/d/i. Patient tolerated procedure well.
[2019-07-14] MEDS ORDERED: LORazepam 2 MG/ML VIAL ONE (09:42)
[2019-07-14] MEDS ORDERED: LIDOCAINE 1%, 20 ML MDV 20 ML ONE (09:46)
--- NOTE | 2019-07-14 12:10 | NUR ---
RT NOTES- AC 12 CHANGED SETTING TO AC 12 PER . RN PINKY ROSALES. NO RESPIRATORY DISTRESS NOTED. WILL CONTINUE MONITORING.
--- NOTE | 2019-07-14 12:40 | NUR ---
MD Rounds Dr. Caba @ bedside for examination. New orders received.
--- NOTE | 2019-07-14 14:26 | NUR ---
radio repair teacher @ bedside @ this time.
[2019-07-14] MEDS ORDERED: HEPARIN SODIUM,PORCINE 5000 UNITS/ML VIAL ONE (15:32)
--- NOTE | 2019-07-14 18:15 | NUR ---
RT NOTES- SIMV 10 PER PLACED PT ON SIMV 10/ PS10. RN PINKY NOTIFIED. WILL CONTINUE MONITORING.
--- NOTE | 2019-07-14 19:10 | NUR ---
PM SHIFT ASSESSMENT Pt is awake but confused. Pt is on the vent, tolerating current vent settings. OG tube noted with tubefeeding infusing. Farrar catheter in place and draining to gravity. MIDLINE PICC to JOSHUA with TPN/LIPIDS infusing. Skin warm and dry. Safety precautions in place, call light within reach. Will continue to monitor.
--- NOTE | 2019-07-14 19:19 | NUR ---
Closing Notes Patient endorsed to treasury analyst RN using SBAR format. Patient in no signs of distress.
[2019-07-14] MEDS ORDERED: TPN NEPHRAMINE IV SCH ×10 (21:00)
[2019-07-14] MEDS ORDERED: SODIUM CHLORIDE IV SCH ×10 (21:00)
[2019-07-14] MEDS ORDERED: NA PHOS IV SCH ×10 (21:00)
[2019-07-14] MEDS ORDERED: [UNRECOGNIZED DRUG - OTHER] IV SCH ×10 (21:00)
[2019-07-14] MEDS: FAMOTIDINE PF 20 MG/2 ML VIAL IVP SCH (21:16)
[2019-07-15] VITALS (33 sets, daily range): BP systolic 120–163
[2019-07-15] MEDS: INSULIN LISPRO SLIDING SCALE 100 UNITS/ML VIAL (humaLOG) SUBCUT PRN ×4 (00:02→17:39)
[2019-07-15] MEDS: IPRATROPIUM BROM 0.5 MG/2.5 ML VIAL.NEB (ATROVENT) INH SCH ×5 (00:35→19:39)
[2019-07-15] MEDS: ALBUTEROL SULFATE 0.083% 2.5 MG/3 ML VIAL.NEB INH SCH ×4 (00:36→19:39)
[2019-07-15] MEDS: TOBRAMYCIN SULFATE 0.3% EYE DROPS 5 ML OP SCH ×6 (03:16→22:32)
[2019-07-15] MEDS: DEXAMETHASONE SOD PHOS 0.1% EYE OR EAR DROPS OP SCH ×6 (03:16→22:33)
[2019-07-15 05:47] LABS: BASOPHILS % (AUTO) 0.2 % (0.0-2.0); EOSINOPHILS # (AUTO) 0.8 K/uL (0.0-0.4); EOSINOPHILS % (AUTO) 5.9 % (0.0-4.0); HEMATOCRIT 24.1 % (36-54); HEMOGLOBIN 8.2 g/dL (14.0-18.0); LYMPHOCYTES # (AUTO) 1.6 K/uL (1.0-5.5); LYMPHOCYTES % (AUTO) 12.1 % (20.5-51.5); MEAN CORPUSCULAR HEMOGLOBIN 32 pg (27-31); MEAN CORPUSCULAR HGB CONC 34 % (32-36); MEAN CORPUSCULAR VOLUME 96 fL (79.0-98.0); MONOCYTES # (AUTO) 1.6 K/uL (0.0-1.0); MONOCYTES % (AUTO) 11.9 % (1.7-9.3); NEUTROPHILS # (AUTO) 9.5 K/uL (1.8-7.7); NEUTROPHILS % (AUTO) 69.9 % (40.0-70.0); PLATELET COUNT (AUTO) 272 K/uL (130-430); RED BLOOD CELL COUNT(AUTO) 2.53 MIL/uL (4.2-6.2); RED CELL DISTRIBUTION WIDTH 14.5 % (9.0-15.0); WHITE BLOOD COUNT (AUTO) 13.6 K/uL (4.8-10.8)
[2019-07-15 06:11] LABS: ALANINE AMINOTRANSFERASE 79 U/L (12-78); ALBUMIN 1.8 g/dL (3.4-4.8); ANION GAP 6 (5-15); ASPARTATE AMINOTRANSFERASE 54 U/L (10-37); CALCIUM 7.7 mg/dL (8.4-11.0); CHLORIDE 101 mmol/L (98-107); CREATININE 2.14 mg/dL (0.55-1.30); GLUCOSE 236 mg/dL (70-99); PHOSPHORUS 3.1 mg/dL (2.7-4.5); SODIUM SERUM 136 mmol/L (136-145); TOTAL BILIRUBIN 0.8 mg/dL (0.0-1.0); TRIGLYCERIDES 239 mg/dL (30-150); UREA NITROGEN, BLOOD 17 mg/dL (8-21)
[2019-07-15] MEDS: PIPERACILLIN/TAZO 2.25G/DEX-IS 50 ML IV SCH ×3 (06:20→22:32)
--- NOTE | 2019-07-15 07:22 | NUR ---
ENDORSEMENT Pt care endorsed to ZEN Traylor using nursing SBAR.
--- NOTE | 2019-07-15 07:40 | NUR ---
Opening Note Patient received sleeping in bed and is connected to school lunch monitor with NSR. Patient intubated and on ventilator with settings of SIMV 10, tidal volume 450, FiO2 30%, PEEP 5, and pressure support 10. No signs of distress noted. Patient has a JOSHUA PICC line infusing TPN @ 52 ml/hr and lipids @ 5 ml/hr. Patient has a left IJ for dialysis. Patient has a left nare NGT infusing Nepro @ 30 ml/hr. Patient has a ortiz catheter in place draining yellow urine. Restraints in place. Safety precautions enforced.
[2019-07-15] MEDS: FUROSEMIDE 40 MG/4 ML VIAL IVP SCH ×2 (08:14→20:30)
[2019-07-15] MEDS: MINERAL OIL 30 ML UDC NG SCH ×2 (08:15→20:29)
[2019-07-15] MEDS: NITROGLYCERIN 1 INCH (GM) OINT. TP SCH ×2 (08:16→20:34)
[2019-07-15] MEDS: amLODIPine BESYLATE 10 MG TABLET PO SCH (08:17)
[2019-07-15] MEDS: INSULIN GLARGINE 100 UNITS/ML 10 ML VIAL SUBCUT SCH (08:19)
[2019-07-15] MEDS: HEPARIN SODIUM,PORCINE 5000 UNITS/ML VIAL SUBCUT SCH ×2 (08:20→20:32)
[2019-07-15] MEDS ORDERED: COMMUNICATION ORDER XX ONE ×2 (09:00→13:00)
--- NOTE | 2019-07-15 09:20 | NUR ---
MD Rounds Dr. Caba @ bedside for examination. New orders received and carried out.
--- NOTE | 2019-07-15 09:30 | NUR ---
RT NOTES- CPAP PER PLACED PT ON CPAP 5, PS10, 30%. TOLERATING WELL AT THIS TIME. RN PINKY MADE AWARE. WILL CONTINUE MONITORING.
--- NOTE | 2019-07-15 09:50 | NUR ---
MD Rounds Dr. Neil @ bedside for examination.
[2019-07-15] MEDS ORDERED: LIDOCAINE 1% 10 MG/ML, 20 ML MDV SUBCUT ONE (10:00)
--- NOTE | 2019-07-15 11:40 | NUR ---
MD Rounds Dr. Desire Abarca @ bedside for examination. New orders received.
[2019-07-15] MEDS ORDERED: ACETAMINOPHEN 500 MG TABLET PO PRN (11:45)
--- NOTE | 2019-07-15 12:19 | NUR ---
CHG CHG bath given and linens changed. Patient tolerated procedure well. No signs of distress noted.
--- NOTE | 2019-07-15 12:37 | NUR ---
MD Rounds Dr. Sinha @ bedside for examination. New orders received and carried out.
--- NOTE | 2019-07-15 17:10 | NUR ---
RT NOTES- SIMV 8 PLACED PT ON SIMV 8, PS 10, PER . RN PINKY ROSALES. WILL CONTINUE MONITORING.
--- NOTE | 2019-07-15 19:34 | NUR ---
Closing Note Patient endorsed to senior accountant analyst RN using SBAR format. Patient in no signs of distress.
--- NOTE | 2019-07-15 20:05 | NUR ---
DR JAMES Gomez updated on patient's diet. Orders received. 1.Increase tube feeding rate to 40ml/hr 2.Water flushes 100ml Q 12 hours.
[2019-07-15] MEDS: FAMOTIDINE PF 20 MG/2 ML VIAL IVP SCH (20:30)
[2019-07-15] MEDS: FAT EMULSIONS 250 ML IV SCH (20:32)
[2019-07-15] MEDS ORDERED: SODIUM CHLORIDE IV SCH ×10 (21:00)
[2019-07-15] MEDS ORDERED: TPN NEPHRAMINE IV SCH ×10 (21:00)
[2019-07-15] MEDS ORDERED: [UNRECOGNIZED DRUG - OTHER] IV SCH ×10 (21:00)
[2019-07-15] MEDS ORDERED: NA PHOS IV SCH ×10 (21:00)
[2019-07-16] VITALS (26 sets, daily range): BP systolic 132–166
[2019-07-16] MEDS: ALBUTEROL SULFATE 0.083% 2.5 MG/3 ML VIAL.NEB INH SCH ×4 (00:47→19:29)
[2019-07-16] MEDS: IPRATROPIUM BROM 0.5 MG/2.5 ML VIAL.NEB (ATROVENT) INH SCH ×4 (00:47→19:30)
[2019-07-16] MEDS: INSULIN LISPRO SLIDING SCALE 100 UNITS/ML VIAL (humaLOG) SUBCUT PRN ×5 (00:56→23:05)
[2019-07-16] MEDS: DEXAMETHASONE SOD PHOS 0.1% EYE OR EAR DROPS OP SCH ×6 (03:10→22:46)
[2019-07-16] MEDS: TOBRAMYCIN SULFATE 0.3% EYE DROPS 5 ML OP SCH ×6 (03:10→22:46)
[2019-07-16] MEDS: PIPERACILLIN/TAZO 2.25G/DEX-IS 50 ML IV SCH ×3 (05:42→22:45)
[2019-07-16 05:58] LABS: BASOPHILS # (AUTO) 0.1 K/uL (0.0-0.2); BASOPHILS % (AUTO) 0.5 % (0.0-2.0); EOSINOPHILS # (AUTO) 0.9 K/uL (0.0-0.4); EOSINOPHILS % (AUTO) 6.9 % (0.0-4.0); HEMOGLOBIN 7.6 g/dL (14.0-18.0); LYMPHOCYTES # (AUTO) 1.3 K/uL (1.0-5.5); LYMPHOCYTES % (AUTO) 9.4 % (20.5-51.5); MEAN CORPUSCULAR HEMOGLOBIN 32 pg (27-31); MEAN CORPUSCULAR HGB CONC 33 % (32-36); MEAN CORPUSCULAR VOLUME 96 fL (79.0-98.0); MONOCYTES # (AUTO) 1.7 K/uL (0.0-1.0); MONOCYTES % (AUTO) 12.7 % (1.7-9.3); NEUTROPHILS # (AUTO) 9.5 K/uL (1.8-7.7); NEUTROPHILS % (AUTO) 70.5 % (40.0-70.0); PLATELET COUNT (AUTO) 292 K/uL (130-430); RED BLOOD CELL COUNT(AUTO) 2.38 MIL/uL (4.2-6.2); RED CELL DISTRIBUTION WIDTH 14.6 % (9.0-15.0); WHITE BLOOD COUNT (AUTO) 13.5 K/uL (4.8-10.8)
--- NOTE | 2019-07-16 06:15 | NUR ---
HINA Old dressing falling off. Left IJ Hina dressing changed. Done under sterile procedure, area cleansed with chlorhexidine, bio-patch applied and covered with transparent dressing. Old dressing falling off.
[2019-07-16 06:21] LABS: ALANINE AMINOTRANSFERASE 63 U/L (12-78); ALBUMIN 1.7 g/dL (3.4-4.8); ANION GAP 5 (5-15); ASPARTATE AMINOTRANSFERASE 46 U/L (10-37); CHLORIDE 99 mmol/L (98-107); CREATININE 2.87 mg/dL (0.55-1.30); GLUCOSE 318 mg/dL (70-99); PHOSPHORUS 3.5 mg/dL (2.7-4.5); POTASSIUM 4.2 mmol/L (3.5-5.1); SODIUM SERUM 134 mmol/L (136-145); TOTAL BILIRUBIN 0.8 mg/dL (0.0-1.0); UREA NITROGEN, BLOOD 29 mg/dL (8-21)
--- NOTE | 2019-07-16 07:15 | NUR ---
ENDORSEMENT Pt care endorsed to ZEN day using nursing SBAR.
--- NOTE | 2019-07-16 07:20 | NUR ---
Opening Note Received patient report via SBAR communication from nurse ZEN Wallace
[2019-07-16] MEDS: FUROSEMIDE 40 MG/4 ML VIAL IVP SCH ×2 (08:52→20:04)
[2019-07-16] MEDS: amLODIPine BESYLATE 10 MG TABLET PO SCH (08:53)
[2019-07-16] MEDS: HEPARIN SODIUM,PORCINE 5000 UNITS/ML VIAL SUBCUT SCH ×2 (08:54→20:08)
[2019-07-16] MEDS: INSULIN GLARGINE 100 UNITS/ML 10 ML VIAL SUBCUT SCH (08:55)
[2019-07-16] MEDS: NITROGLYCERIN 1 INCH (GM) OINT. TP SCH ×2 (08:56→20:05)
[2019-07-16] MEDS: MINERAL OIL 30 ML UDC NG SCH ×3 (08:56→20:08)
[2019-07-16] MEDS: cloNIDine HCL 0.1 MG/24 HR PATCH.TDWK TD SCH (08:59)
--- NOTE | 2019-07-16 09:20 | NUR ---
Round Dr. Hou at bedside, no new orders
--- NOTE | 2019-07-16 09:40 | NUR ---
Round Dr. Caba at bedside, extubation orders given to RT
--- NOTE | 2019-07-16 10:00 | NUR ---
Nursing Note Restraints removed at 1000, patient is not trying to remove IV or dressings. Patient is lying in bed with eyes open and appears relaxed.
--- NOTE | 2019-07-16 10:04 | NUR ---
Nursing Note Patient extubated by RT per MD order, placed on cool aerosol at 35%. Patient educated to take slow, deep breaths.
[2019-07-16] MEDS ORDERED: INSULIN GLARGINE 100 UNITS/ML 10 ML VIAL SUBCUT ONE (10:15)
--- NOTE | 2019-07-16 10:15 | NUR ---
MD Round Dr. Boyle at beside, 10 units of Lantus ordered now. entered orders
--- NOTE | 2019-07-16 10:21 | NUR ---
[address] concepcion. placed on .35 cool aerosol. sat 99% hr 95 rr 32. family at bedside will cont. monitoring. Addendum: 07/16/19 at 1027 by Chetna Prabhakar RT Amended: Links added.
--- NOTE | 2019-07-16 14:50 | NUR ---
Round Dr. Hoffman at bedside, no new orders given.
--- NOTE | 2019-07-16 15:00 | NUR ---
Round Dr. Patrick at bedside, no new orders given
--- NOTE | 2019-07-16 16:10 | NUR ---
Dialysis Dialysis nurse at bedside
[2019-07-16] MEDS: HEPARIN SODIUM,PORCINE 5000 UNITS/ML VIAL ONE ×2 (18:14→18:33)
[2019-07-16] MEDS ORDERED: HEPARIN SODIUM,PORCINE 5000 UNITS/ML VIAL MC ONE (18:15)
--- NOTE | 2019-07-16 19:10 | NUR ---
Dialysis Dialysis complete, 2.5 L output
--- NOTE | 2019-07-16 19:23 | NUR ---
Closing Note Gave patient report to nurse ZEN Camara via SBAR communication.
--- NOTE | 2019-07-16 20:00 | NUR ---
Opening Note Pt in bed asleep. SR on the monitor. Pt on cool aerosol mask w/ FIO2 @35%. No s/s of distress noted. Pt has JOSHUA Midline in place. No s/s of infiltration noted. Site is C/D/I. Left IJ in place, used for dialysis. Pt has L NGT in place set to low intermittent suction. Pt has ortiz catheter in place, draining urine to gravity. Bed locked in lowest position, call light in reach, and safety precautions in place. Will continue to monitor.
[2019-07-16] MEDS: FAMOTIDINE PF 20 MG/2 ML VIAL IVP SCH (20:03)
[2019-07-16] MEDS: FAT EMULSIONS 250 ML IV SCH (20:08)
[2019-07-16] MEDS ORDERED: NA PHOS IV SCH ×10 (21:00)
[2019-07-16] MEDS ORDERED: SODIUM CHLORIDE IV SCH ×10 (21:00)
[2019-07-16] MEDS ORDERED: [UNRECOGNIZED DRUG - OTHER] IV SCH ×10 (21:00)
[2019-07-16] MEDS ORDERED: TPN NEPHRAMINE IV SCH ×10 (21:00)
--- NOTE | 2019-07-16 23:14 | NUR ---
Pt in bed, awake and able to track , but unable to follow commands. Pt VSS. no s/s of distress noted. Pt had BM, cleaned, and linens changed. Tolerated well. Will continue to monitor.
[2019-07-17] VITALS (24 sets, daily range): BP systolic 124–154
[2019-07-17] MEDS: ALBUTEROL SULFATE 0.083% 2.5 MG/3 ML VIAL.NEB INH SCH ×4 (00:51→19:38)
[2019-07-17] MEDS: IPRATROPIUM BROM 0.5 MG/2.5 ML VIAL.NEB (ATROVENT) INH SCH ×4 (00:57→19:37)
[2019-07-17] MEDS: DEXAMETHASONE SOD PHOS 0.1% EYE OR EAR DROPS OP SCH ×6 (03:57→23:13)
[2019-07-17] MEDS: TOBRAMYCIN SULFATE 0.3% EYE DROPS 5 ML OP SCH ×6 (03:57→23:12)
--- NOTE | 2019-07-17 04:30 | NUR ---
Pt in bed asleep, no s/s of distress noted. Will continue to monitor.
[2019-07-17] MEDS: PIPERACILLIN/TAZO 2.25G/DEX-IS 50 ML IV SCH ×3 (05:23→21:20)
[2019-07-17] MEDS: INSULIN LISPRO SLIDING SCALE 100 UNITS/ML VIAL (humaLOG) SUBCUT PRN (05:26)
[2019-07-17 05:54] LABS: BASOPHILS # (AUTO) 0.1 K/uL (0.0-0.2); NEUTROPHILS # (AUTO) 8.6 K/uL (1.8-7.7); RED CELL DISTRIBUTION WIDTH 14.2 % (9.0-15.0)
[2019-07-17 06:10] LABS: BASOPHILS % (AUTO) 0.4 % (0.0-2.0); EOSINOPHILS % (AUTO) 7.4 % (0.0-4.0); LYMPHOCYTES # (AUTO) 1.4 K/uL (1.0-5.5); LYMPHOCYTES % (AUTO) 11.2 % (20.5-51.5); MEAN CORPUSCULAR HEMOGLOBIN 32 pg (27-31); MEAN CORPUSCULAR HGB CONC 33 % (32-36); MEAN CORPUSCULAR VOLUME 96 fL (79.0-98.0); MONOCYTES # (AUTO) 1.8 K/uL (0.0-1.0); MONOCYTES % (AUTO) 14.1 % (1.7-9.3); NEUTROPHILS % (AUTO) 66.9 % (40.0-70.0); PLATELET COUNT (AUTO) 285 K/uL (130-430); RED BLOOD CELL COUNT(AUTO) 2.22 MIL/uL (4.2-6.2); WHITE BLOOD COUNT (AUTO) 12.8 K/uL (4.8-10.8)
[2019-07-17 06:17] LABS: ALANINE AMINOTRANSFERASE 56 U/L (12-78); ALBUMIN 1.5 g/dL (3.4-4.8); ANION GAP 9 (5-15); ASPARTATE AMINOTRANSFERASE 43 U/L (10-37); CALCIUM 7.5 mg/dL (8.4-11.0); CHLORIDE 102 mmol/L (98-107); CREATININE 2.66 mg/dL (0.55-1.30); GLUCOSE 175 mg/dL (70-99); PHOSPHORUS 3.4 mg/dL (2.7-4.5); POTASSIUM 3.9 mmol/L (3.5-5.1); SODIUM SERUM 138 mmol/L (136-145); TOTAL BILIRUBIN 0.7 mg/dL (0.0-1.0); TRIGLYCERIDES 203 mg/dL (30-150); UREA NITROGEN, BLOOD 23 mg/dL (8-21)
[2019-07-17 06:20] LABS: HEMATOCRIT 21.3 % (36-54); HEMOGLOBIN 7.1 g/dL (14.0-18.0)
--- NOTE | 2019-07-17 06:34 | NUR ---
Closing Note Pt in bed Asleep. SR on the monitor, Cool aerosol mask w/ FIO2 35%. No s/s of distress noted. JOSHUA Midline in place, TPN and Lipids infusing. NO s/s of infiltration noted. L IJ in place, used for dialysis. Pt has ortiz catheter draining urine to gravity. Pt has (L) NGT set to low intermittent suction. No skin breakdown noted to posterior side. Q2H turns done this time. Bed locked in lowest position, call light in reach, and safety precautions in place. Will endorse to oncoming RN.
--- NOTE | 2019-07-17 07:30 | NUR ---
Opening Note Received patient report from ZEN Camara via SBAR
--- NOTE | 2019-07-17 07:39 | NUR ---
Endorsement Report given to oncoming RN at bedside via SBAR approach.
[2019-07-17] MEDS: HEPARIN SODIUM,PORCINE 5000 UNITS/ML VIAL SUBCUT SCH ×2 (08:40→21:26)
[2019-07-17] MEDS: INSULIN GLARGINE 100 UNITS/ML 10 ML VIAL SUBCUT SCH (08:42)
[2019-07-17] MEDS: NITROGLYCERIN 1 INCH (GM) OINT. TP SCH ×2 (08:43→21:21)
--- NOTE | 2019-07-17 08:43 | NUR ---
0820 TITRATED FIO2 TO .28 CA. RN AWARE SAT 99%. Addendum: 07/17/19 at 0844 by Chetna Prabhakar RT Amended: Links added.
[2019-07-17] MEDS: amLODIPine BESYLATE 10 MG TABLET PO SCH (08:44)
[2019-07-17] MEDS: MINERAL OIL 30 ML UDC NG SCH ×2 (08:47→21:00)
[2019-07-17] MEDS: FUROSEMIDE 40 MG/4 ML VIAL IVP SCH ×2 (09:00→21:21)
--- NOTE | 2019-07-17 12:05 | NUR ---
Nursing Note Midline PICC inserted by PICC nurse at right upper arm as ordered by Dr. Patrick
--- NOTE | 2019-07-17 13:13 | NUR ---
BT INITIATION: Consent signed per patient's son agreeing to administration of blood. Blood has been type and crossmatched. Blood sent from blood bank. Information on unit of blood checked against patient wristband at bedside by two nurses. All information matches. Patient or responsible libertarian informed of potential complications associated with blood transfusion. Informed of possible transfusion reaction symptoms. Aware of need to notify nurse at once of itching, shortness of breath, flushing, feeling of impending doom, or other symptoms not previously present. Vital signs taken within 5 minutes prior to initiation of transfusion; T98.7, P83, R27, BP124/72. RN will remain with patient for first 15 minutes of transfusion at which time vital signs will be re-assessed.
--- NOTE | 2019-07-17 13:28 | NUR ---
15 minutes of Blood Transfusion Pt in no signs distress or pain, VS: T 98, P 82, R 29, BP 142/63. Tolerating well.
--- NOTE | 2019-07-17 13:40 | NUR ---
MD Rounds Dr. Caba @ bedside for examination. Received new orders.
--- NOTE | 2019-07-17 15:39 | NUR ---
Nutrition F/U Admitting Diagnosis: Heart failure RD reviewed pt's current EMR record including diet Hx, physician notes, nursing notes, pertinent labs/meds/procedures, care trends, and care activity. PMH: DM type 2, diabetic retinopathy, legally blind, diabetic PVD, L BKA, diabetic CKD, CHF, hyperkalemia per physician's notes Pt also found s/p cardiopulmonary arrest 07/03/19, acute respiratory failure, pneumonia, lactic acidosis, sepsis (resolved), malnutrition, ESRD on HD per physician's notes Current Nutrition Support: NPO + TPN D30%, AA5.4% at 44.277 mL/hr, IL20% at 5 mL/hr per central line Subjective Information: Pt was seen resting in bed w/ family member at bedside. Pt's TPN was on standby mode at time of RD visit as pt was receiving BT. Per RN, pt's TF was D/C a few days ago d/t stomach distension. Pt had NGT to LIS w/ about 250 ml of brown/white output in canister. Pt had midline PICC placement earlier today and was extubated yesterday per RN report. Ht: " Wt: 146#/66 kg BMI: 28.51 kg/m2 UBW: 135#/ 61kg %UBW: 108 %IBW: 138 IBW: 106#/48 kg. Adj IBW (obesity): 116#/53 kg; Adj IBW (BKA): 99#/45 kg NEW Estimated Energy Expenditure (kcals/day) 0554-5237 kcal/day (MSJ x 1-1.2 CBW for maintenance) Estimated Protein Required (g/day) 54-63 gm/day (1.2-1.5 gm/kg (ABW BKA) for ESRD on HD) Estimated Fluid Required (l/day) Per physician d/t ARF, CHF, CKD Problem/Etiology/Signs/Symptoms 1. Inadequate nutritional intakes related to critical illness/geriatric maintenance as evidenced by NPO status and TPN kcal being delivered. (*ongoing) Expected Outcomes/Goals - Monitor tolerance to TPN support w/ goal of pt meeting at least 75% of estimated nutritional needs, labs trending WNL, normal GI function, and skin integrity/wt maintenance. Dietitian Recommendations * Recommend TPN D30%, AA5.4% at 70 ml/hr (goal rate), IL20% at 5 ml/hr daily via central line Provides: 1278 kcal/day, 45 gm protein/day, 1800 ml total volume/day, and GIR: 2.7 gm CHO/kg/min Meets: 103% of estimated caloric needs and 83% of lower end of estimated protein needs * If/when medically appropriate, recommend Nepro 1.8 at 32 mL/hr, Free Water Flush: per physician Provides: 1382 kcal/day, 62 gm of protein/day, 558mL of fluid/day Meets: 93% of upper end of estimated caloric needs and 98% of upper estimated protein needs Follow Up High Risk: F/U in 2-3 days
--- NOTE | 2019-07-17 15:53 | NUR ---
Dietitian Recommendations * Recommend TPN D30%, AA5.4% at 70 ml/hr (goal rate), IL20% at 5 ml/hr daily via central line Provides: 1278 kcal/day, 45 gm protein/day, 1800 ml total volume/day, and GIR: 2.7 gm CHO/kg/min Meets: 103% of estimated caloric needs and 83% of lower end of estimated protein needs * If/when medically appropriate, recommend Nepro 1.8 at 32 mL/hr, Free Water Flush: per physician Provides: 1382 kcal/day, 62 gm of protein/day, 558mL of fluid/day Meets: 93% of upper end of estimated caloric needs and 98% of upper estimated protein needs LP, RD Please refer to Nutrition F/U for details.
--- NOTE | 2019-07-17 16:07 | NUR ---
MD Rounds Dr. Desire Abarca @ bedside for examination.
--- NOTE | 2019-07-17 16:10 | NUR ---
MD Rounds Dr. Patrick @ bedside for examination. Received new orders.
--- NOTE | 2019-07-17 16:15 | NUR ---
MD Rounds Dr. Boyle @ bedside for examination. Received new orders.
--- NOTE | 2019-07-17 16:30 | NUR ---
MD Rounds Dr. Connors @ bedside for examination. Received new orders.
[2019-07-17] MEDS ORDERED: EPOETIN ALFA 4,000 UNITS/ML VIAL SUBCUT SCH (17:00)
--- NOTE | 2019-07-17 17:00 | NUR ---
CHG CHG bath given and linens changed. Patient tolerated procedure well.
[2019-07-17] MEDS ORDERED: EPOETIN ALFA 10,000 UNITS/ML VIAL SUBCUT SCH (18:38)
[2019-07-17] MEDS ORDERED: BISACODYL 10 MG/SUPPOSITORY RC ONE (18:45)
[2019-07-17] MEDS ORDERED: EPOETIN ALFA 10,000 UNITS/ML VIAL SUBCUT ONE (18:45)
--- NOTE | 2019-07-17 19:30 | NUR ---
PM ASSESSMENT REPORT RECEIVED FROM PINKY ZALDIVAR. PT RECEIVED IN BED WITH EYES OPEN, RESPONDING TO VERBAL STIMULATION. PT ON 1L OXIMIZER. SR ON MONITOR. JOSHUA MIDLINE IN PLACE FINISHING BLOOD TRANSFUSION. L IJ HINA CATH NOTED FOR DIALYSIS ACCESS. L DANIELLAE NGT TO DIAZ. BILATERAL SOFT WRIST RESTRAINTS IN PLACE, NO S/S OF INJURY NOTED. AGUILERA CATH IN PLACE DRAINING URINE TO GRAVITY. HOB ELEVATED, BED IN LOWEST POSITION, CALL LIGHT IN REACH. WILL CONTINUE TO MONITOR PT.
--- NOTE | 2019-07-17 19:37 | NUR ---
Closing Notes Patient endorsed to security shift manager RN using SBAR format. No signs of distress noted @ this time.
[2019-07-17] MEDS ORDERED: D10W 500 ML IV SCH (20:00)
--- NOTE | 2019-07-17 20:53 | NUR ---
SWALLOW EVAL: SWALLOW EVALUATION CALLED LEFT A MESSAGE FOR TODD. PROFESSIONAL SPEECH SERVICE.
[2019-07-17] MEDS ORDERED: NA PHOS IV SCH ×11 (21:00)
[2019-07-17] MEDS ORDERED: [UNRECOGNIZED DRUG - OTHER] IV SCH ×11 (21:00)
[2019-07-17] MEDS ORDERED: SODIUM CHLORIDE IV SCH ×11 (21:00)
[2019-07-17] MEDS ORDERED: TPN NEPHRAMINE IV SCH ×11 (21:00)
[2019-07-17] MEDS: FAMOTIDINE PF 20 MG/2 ML VIAL IVP SCH (21:21)
[2019-07-17] MEDS: FAT EMULSIONS 250 ML IV SCH (21:24)
[2019-07-18] VITALS (18 sets, daily range): BP systolic 127–162
[2019-07-18] MEDS: ALBUTEROL SULFATE 0.083% 2.5 MG/3 ML VIAL.NEB INH SCH ×4 (01:03→19:31)
[2019-07-18] MEDS: IPRATROPIUM BROM 0.5 MG/2.5 ML VIAL.NEB (ATROVENT) INH SCH ×4 (01:04→19:32)
[2019-07-18] MEDS: TOBRAMYCIN SULFATE 0.3% EYE DROPS 5 ML OP SCH ×6 (02:51→23:29)
[2019-07-18] MEDS: DEXAMETHASONE SOD PHOS 0.1% EYE OR EAR DROPS OP SCH ×6 (02:52→23:29)
[2019-07-18 05:49] LABS: BASOPHILS # (AUTO) 0.1 K/uL (0.0-0.2); BASOPHILS % (AUTO) 0.7 % (0.0-2.0); EOSINOPHILS # (AUTO) 1.2 K/uL (0.0-0.4); EOSINOPHILS % (AUTO) 11.9 % (0.0-4.0); HEMATOCRIT 32.9 % (36-54); HEMOGLOBIN 11.3 g/dL (14.0-18.0); LYMPHOCYTES # (AUTO) 1.1 K/uL (1.0-5.5); LYMPHOCYTES % (AUTO) 10.6 % (20.5-51.5); MEAN CORPUSCULAR HEMOGLOBIN 33 pg (27-31); MEAN CORPUSCULAR HGB CONC 34 % (32-36); MEAN CORPUSCULAR VOLUME 95 fL (79.0-98.0); MONOCYTES # (AUTO) 1.5 K/uL (0.0-1.0); MONOCYTES % (AUTO) 14.6 % (1.7-9.3); NEUTROPHILS # (AUTO) 6.6 K/uL (1.8-7.7); NEUTROPHILS % (AUTO) 62.2 % (40.0-70.0); PLATELET COUNT (AUTO) 300 K/uL (130-430); RED BLOOD CELL COUNT(AUTO) 3.45 MIL/uL (4.2-6.2); RED CELL DISTRIBUTION WIDTH 13.9 % (9.0-15.0); WHITE BLOOD COUNT (AUTO) 10.5 K/uL (4.8-10.8)
[2019-07-18 06:11] LABS: ALANINE AMINOTRANSFERASE 53 U/L (12-78); ALBUMIN 1.7 g/dL (3.4-4.8); ASPARTATE AMINOTRANSFERASE 45 U/L (10-37); CALCIUM 8.1 mg/dL (8.4-11.0); CHLORIDE 102 mmol/L (98-107); CREATININE 3.44 mg/dL (0.55-1.30); GLUCOSE 147 mg/dL (70-99); PHOSPHORUS 5.1 mg/dL (2.7-4.5); POTASSIUM 4.5 mmol/L (3.5-5.1); SODIUM SERUM 137 mmol/L (136-145); TOTAL BILIRUBIN 0.7 mg/dL (0.0-1.0); UREA NITROGEN, BLOOD 33 mg/dL (8-21)
[2019-07-18] MEDS: PIPERACILLIN/TAZO 2.25G/DEX-IS 50 ML IV SCH ×3 (06:17→21:48)
[2019-07-18 06:28] LABS: ANION GAP 11 (5-15)
--- NOTE | 2019-07-18 07:15 | NUR ---
Opening Note Patient received sleeping in bed with no signs of distress noted. Patient on cafeteria monitor with NSR. Patient on room air breathing evenly and unlabored. Patient has a JOSHUA midline infusing TPN @ 40 ml, lipids @ 5, and D10W @ 10 ml/hr. Patient also has a left IJ for dialysis. Patient has a left NGT connected to low intermittent suction. Patient has a ortiz catheter in place. Skin intact. Restraints in place. Safety precautions.
[2019-07-18] MEDS: NITROGLYCERIN 1 INCH (GM) OINT. TP SCH ×2 (08:43→22:12)
[2019-07-18] MEDS: FUROSEMIDE 40 MG/4 ML VIAL IVP SCH ×2 (08:43→22:11)
[2019-07-18] MEDS: INSULIN GLARGINE 100 UNITS/ML 10 ML VIAL SUBCUT SCH (08:44)
[2019-07-18] MEDS: HEPARIN SODIUM,PORCINE 5000 UNITS/ML VIAL SUBCUT SCH ×2 (08:47→21:00)
[2019-07-18] MEDS: amLODIPine BESYLATE 10 MG TABLET PO SCH (08:52)
[2019-07-18] MEDS: MINERAL OIL 30 ML UDC NG SCH ×2 (08:52→21:00)
[2019-07-18] MEDS: BISACODYL 10 MG/SUPPOSITORY RC SCH (08:52)
--- NOTE | 2019-07-18 11:15 | NUR ---
MD Rounds Dr. Caba @ bedside for examination. No new orders received.
[2019-07-18] MEDS: INSULIN LISPRO SLIDING SCALE 100 UNITS/ML VIAL (humaLOG) SUBCUT PRN (11:50)
--- NOTE | 2019-07-18 13:50 | NUR ---
MD Rounds Dr. Desire Abarca @ bedside for examination. New orders received and carried out.
--- NOTE | 2019-07-18 14:50 | NUR ---
MD Rounds Dr. Connors @ bedside. No new orders received.
--- NOTE | 2019-07-18 17:05 | NUR ---
S.T. SWALLOW EVAL SWALLOW EVAL COMPLETED. PRESENT. PT PRESENTS W/ MOD-SEV OROPHARYNGEAL DYSPHAGIA W/ INCONSISTENT BOLUS FRUIT I FARMWORKER AND TRANSFER W/ INCONSITENT SWALLOW INITIATION. NO S/S OF ASPIRATION BUT RISK PRESENT. REC: NPO. VFSS. AWAITING ORDER. NURSE PINKY NOTIFIED. [id number] CL [id number] CL [id number] CL NOMS LEVEL 3
--- NOTE | 2019-07-18 19:15 | NUR ---
CHANGE OF SHIFT; nurse Ana from ICU gave report to pt. transferring after hemodialysis in room 119 A.
--- NOTE | 2019-07-18 19:37 | NUR ---
Closing Note Patient endorsed to maintenance mechanic 2nd shift nurse using SBAR format. Patient receiving dialysis at this time. swiss type screw machine operator @ bedside. Family @ bedside.
--- NOTE | 2019-07-18 20:00 | NUR ---
Opening Note Pt in bed, awake, but confused. Pt able to track, but not follow commands. SR on the monitor, pt on 1L oximizer. No s/s of distress noted. Pt has JOSHUA midline in place running TPN and Lipids. Pt has L IJ in place, no s/s of infiltration noted. Pt currently receiving dialysis. No s/s of distress noted. Pt has L NGT in place, set to low intermittent suction. Farrar catheter in place draining urine to gravity. Pt being turned Q2H. Bed locked in lowest position, call light in reach, and safety precautions in place. Family present at bedside. Will continue to monitor.
[2019-07-18] MEDS ORDERED: HEPARIN SODIUM,PORCINE 5000 UNITS/ML VIAL ONE (20:22)
[2019-07-18] MEDS ORDERED: SODIUM CHLORIDE IV SCH ×10 (21:00)
[2019-07-18] MEDS ORDERED: [UNRECOGNIZED DRUG - OTHER] IV SCH ×10 (21:00)
[2019-07-18] MEDS ORDERED: TPN NEPHRAMINE IV SCH ×10 (21:00)
[2019-07-18] MEDS ORDERED: NA PHOS IV SCH ×10 (21:00)
--- NOTE | 2019-07-18 21:30 | NUR ---
Spoke to pharmacy regarding TPN medication. Kristian from pharmacy, luciano'ed administration of bag, made aware of not being able to scan bag. Will continue to monitor.
--- NOTE | 2019-07-18 21:45 | NUR ---
Hemodialysis completed, 1.5L removed. Pt tolerated well, no s/s of distress noted.
[2019-07-18] MEDS: FAMOTIDINE PF 20 MG/2 ML VIAL IVP SCH (21:48)
--- NOTE | 2019-07-18 22:05 | NUR ---
Lasix and Nitropaste medication given late d/t Pt having dialysis.
[2019-07-18] MEDS: FAT EMULSIONS 250 ML IV SCH (22:07)
--- NOTE | 2019-07-18 23:10 | NUR ---
NGT (L) dislodged when Pt was moving head back and forth.
--- NOTE | 2019-07-18 23:40 | NUR ---
Pt transferred to [facility] Room 119A. Pt stable and Report given to receiving RN.
--- NOTE | 2019-07-18 23:45 | NUR ---
TRANSFER NOTES; pt. transferred via bed from ICU, pt. on bilateral wrist restraints, NGT was pulled out prior to transfer.pt. quite restless, non verbal with family. opens eyes when name called by son. IV TPN /Lipids and D10 infusing via mid line cath on rt. upper arm. LT. IJ for hemodialysis access. HD completed tonight with 1.5 liters out per RN. abdomen distended. sounds gurgly, O2 @ 1l/per oxymyzer. ortiz cath to OSD. pt. condition guarded. repositioned, turn to sides. pt. is LBKA, dressing intact.
--- NOTE | 2019-07-19 00:16 | NUR ---
NOTES: reinserted josé miguel randlep nasogastric tube on his left nares, checked with nurse Johnathon for placement, secure with tape, will check Xray, connected to low intermittent suction. pt. family at bedside.
--- NOTE | 2019-07-19 00:50 | NUR ---
NOTES: checked BS 2x 61 and 63, D50 IV 25 ml. IVP given as ordered. will recheck in 15-30 min. suctioned nasally and orally with very small amts. of mucus, still sounds gurgly on upper airways.HOB on semi fowlers position. bilateral wrist restraints intact. keeps shaking head. remain at bedside. waiting for the result of X ray for NGT placement. pt. was cleaned earlier with moderate bowel movement.
[2019-07-19 01:16] VITALS: BP_SYST 147
[2019-07-19] MEDS: IPRATROPIUM BROM 0.5 MG/2.5 ML VIAL.NEB (ATROVENT) INH SCH ×4 (01:32→20:27)
[2019-07-19] MEDS: ALBUTEROL SULFATE 0.083% 2.5 MG/3 ML VIAL.NEB INH SCH ×4 (01:32→20:27)
--- NOTE | 2019-07-19 01:40 | NUR ---
NOTES: rechecked BS 113. RT at bedside, breathing treatment started. pt. calm and less restless.
--- NOTE | 2019-07-19 03:00 | NUR ---
NOTES; made rounds, pt. sleeping and calm. at bedside. condition guarded. cardiac pattern on sinus rhythm with BBB.
[2019-07-19] MEDS: TOBRAMYCIN SULFATE 0.3% EYE DROPS 5 ML OP SCH ×5 (04:01→23:00)
[2019-07-19] MEDS: DEXAMETHASONE SOD PHOS 0.1% EYE OR EAR DROPS OP SCH ×5 (04:01→23:00)
--- NOTE | 2019-07-19 05:00 | NUR ---
NOTES: pt. been sleeping, no acute distress. remains sinus rhythm. IVF infusing. continue to monitor. pt. sleeping in the chair.
[2019-07-19] MEDS: PIPERACILLIN/TAZO 2.25G/DEX-IS 50 ML IV SCH ×3 (05:07→22:00)
--- NOTE | 2019-07-19 06:30 | NUR ---
CLOSING NOTES; PT. STILL CALM AND SLEEPING, FOR FURTHER CARE AND ASSISTANCE. IVF INFUSING AND PATENT. AGUILERA CATH TO OSD. NGT TO LOW INTERMITTENT SUCTION. BED ALARM ON. WILL ENDORSE TO DAY SHIFT.
--- NOTE | 2019-07-19 07:15 | NUR ---
received report at the bedside. patient aphasic and lethargic. non verbal. has oximizer 1 liter of oxygen. always turn and moved his head to sides. has left ngtube to low intermittent suction. has left internal jugular po cath in placed. dry/intact. has rt upper midline with tpn 44 cc/hr and lipids at 5cc/hr. infusing on well. has ortiz catheter draining clear yellow urine with good output. bed low position, alarmed and locked. has bilateral wrist restraints noted. hourly rounding and turn every two hours. call lights within reach. family always at the bedside.
[2019-07-19 07:35] LABS: HEMATOCRIT 30.9 % (36-54); HEMOGLOBIN 10.6 g/dL (14.0-18.0); MEAN CORPUSCULAR HEMOGLOBIN 33 pg (27-31); MEAN CORPUSCULAR HGB CONC 34 % (32-36); MEAN CORPUSCULAR VOLUME 96 fL (79.0-98.0); PLATELET COUNT (AUTO) 305 K/uL (130-430); RED BLOOD CELL COUNT(AUTO) 3.22 MIL/uL (4.2-6.2); RED CELL DISTRIBUTION WIDTH 13.9 % (9.0-15.0); WHITE BLOOD COUNT (AUTO) 11.2 K/uL (4.8-10.8)
[2019-07-19 07:54] LABS: ALANINE AMINOTRANSFERASE 55 U/L (12-78); ALBUMIN 1.7 g/dL (3.4-4.8); ANION GAP 6 (5-15); ASPARTATE AMINOTRANSFERASE 61 U/L (10-37); CALCIUM 7.9 mg/dL (8.4-11.0); CHLORIDE 101 mmol/L (98-107); CREATININE 2.53 mg/dL (0.55-1.30); GLUCOSE 123 mg/dL (70-99); PHOSPHORUS 2.5 mg/dL (2.7-4.5); POTASSIUM 3.8 mmol/L (3.5-5.1); SODIUM SERUM 138 mmol/L (136-145); TOTAL BILIRUBIN 0.7 mg/dL (0.0-1.0); UREA NITROGEN, BLOOD 18 mg/dL (8-21)
[2019-07-19 08:00] VITALS: BP_SYST 141
--- NOTE | 2019-07-19 08:18 | NUR ---
ATTENDING MD DR RHETT GOLDMAN WAS CALLED RE: CRITICAL MG LEVEL. SPOKE TO NAVI.
--- NOTE | 2019-07-19 09:00 | NUR ---
DR GOLDMAN CALLED FOR MAGNESIUM SULFATE ORDER. 2 GM IV X 1 NOW.
[2019-07-19] MEDS: HEPARIN SODIUM,PORCINE 5000 UNITS/ML VIAL SUBCUT SCH ×2 (09:08→21:00)
[2019-07-19] MEDS: NITROGLYCERIN 1 INCH (GM) OINT. TP SCH ×2 (09:09→21:00)
[2019-07-19] MEDS: MINERAL OIL 30 ML UDC NG SCH ×2 (09:09→21:00)
[2019-07-19] MEDS: FUROSEMIDE 40 MG/4 ML VIAL IVP SCH ×2 (09:09→21:00)
[2019-07-19] MEDS: amLODIPine BESYLATE 10 MG TABLET PO SCH (09:10)
[2019-07-19 09:14] LABS: BAND % (MANUAL) 2 % (0-6); BASOPHILS % (MANUAL) 0 % (0-2); EOSINOPHILS % (MANUAL) 7 % (0-7); LYMPHOCYTES % (MANUAL) 12 % (20-46); MONOCYTES % (MANUAL) 10 % (0-11)
[2019-07-19] MEDS ORDERED: MAGNESIUM SULFATE 50 ML IV ONE (09:15)
--- NOTE | 2019-07-19 10:00 | NUR ---
DUE MEDICATION GIVEN ORDERED.
[2019-07-19] MEDS: BISACODYL 10 MG/SUPPOSITORY RC SCH (10:14)
[2019-07-19] MEDS: INSULIN GLARGINE 100 UNITS/ML 10 ML VIAL SUBCUT SCH (10:21)
[2019-07-19] MEDS: INSULIN LISPRO SLIDING SCALE 100 UNITS/ML VIAL (humaLOG) SUBCUT PRN ×2 (11:24→18:44)
--- NOTE | 2019-07-19 12:00 | NUR ---
radiology department called for x ray swallowing study and said will do it at 1330pm.
--- NOTE | 2019-07-19 12:06 | NUR ---
called dr carlene rosario for orders possible clearance for discharge.
--- NOTE | 2019-07-19 12:24 | NUR ---
NEPHORLOGIST, DR Doris MUSTAFA WAS CALLED RE: CLEARANCE FOR DISCHARGE TO [facility] SPOKE TO HIS NON ACOUSTIC OPERATOR.
[2019-07-19 13:07] VITALS: BP_SYST 143
[2019-07-19] MEDS ORDERED: BARIUM SULFATE 135 ML SUSP.RECON (E-Z-HD) PO ONE (13:49)
--- NOTE | 2019-07-19 14:12 | NUR ---
S.T. VFSS ATTEMPTED VIDEOFLUOROSCOPIC SWALLOW STUDY ATTEMPTED. UNABLE TO COMPLETE. PT UNABLE/UNWILLING TO TAKE IN BOLUS. MAY NEED TO CONSIDER [facility] FEEDING OPTIONS. NRSG NOTIFIED.
--- NOTE | 2019-07-19 16:30 | NUR ---
DR GOLDMAN CALLED FOR THE VIDEO SWALLOW FAILED. PATIENT REFUSED TO OPEN THE MOUTH, PER DUDLEY SWALLOW TECH. AND DR ROJAS OK TO DISCHARGE.
[2019-07-19 17:13] VITALS: BP_SYST 143
--- NOTE | 2019-07-19 17:30 | NUR ---
DR BENOIT MADE AWARE OF THE FAILED VIDEO SWALLOW. NO ORDER MADE SO FAR
--- NOTE | 2019-07-19 18:00 | NUR ---
DR MUSTAFA CAME AND SEE THE PATIENT. ORDERED TO HAVE SUCTION EVERY HOUR. INFORMED THE RESPIRATORY THERAPIST.
--- NOTE | 2019-07-19 19:00 | NUR ---
family refusing to have g tube placement.
--- NOTE | 2019-07-19 19:42 | NUR ---
sbar report endorsed to incoming nurse Quin ZALDIVAR
[2019-07-19 20:00] VITALS: BP_SYST 133
--- NOTE | 2019-07-19 20:00 | NUR ---
Pt was received in bed lethargic and non-verbal. Pt's is sitting in the room. TPN and Lipids are infusing well via JOSHUA Midline with Midline dressing dry and intact. LIJ Derik Hemodialysis catheter noted with the dressing dry and intact. Skin is warm and dry to touch. No signs or symptoms of hypoglycemia or hyperglycemia noted. NGT to LIWS noted and draining brownish fluid. Farrar cath to gravity drainage is draining yellowish urine. Fall and safety precautions are in place. Bilateral soft wrist restraints are on and no circulatory impairment noted.
[2019-07-19] MEDS ORDERED: NA PHOS IV SCH ×10 (21:00)
[2019-07-19] MEDS ORDERED: [UNRECOGNIZED DRUG - OTHER] IV SCH ×10 (21:00)
[2019-07-19] MEDS ORDERED: SODIUM CHLORIDE IV SCH ×10 (21:00)
[2019-07-19] MEDS ORDERED: TPN NEPHRAMINE IV SCH ×10 (21:00)
[2019-07-19] MEDS: FAT EMULSIONS 250 ML IV SCH (21:00)
[2019-07-19] MEDS: FAMOTIDINE PF 20 MG/2 ML VIAL IVP SCH (21:00)
[2019-07-20] MEDS: IPRATROPIUM BROM 0.5 MG/2.5 ML VIAL.NEB (ATROVENT) INH SCH ×4 (01:29→19:21)
[2019-07-20] MEDS: ALBUTEROL SULFATE 0.083% 2.5 MG/3 ML VIAL.NEB INH SCH ×4 (01:30→19:21)
--- NOTE | 2019-07-20 02:00 | NUR ---
TPN and Lipids are infusing well. NGT remains connected to LIWS. No respiratory distress noted. Fall and safety precautions are in place.
[2019-07-20 02:31] VITALS: BP_SYST 127
[2019-07-20] MEDS: DEXAMETHASONE SOD PHOS 0.1% EYE OR EAR DROPS OP SCH ×4 (03:00→18:38)
[2019-07-20] MEDS: TOBRAMYCIN SULFATE 0.3% EYE DROPS 5 ML OP SCH ×4 (03:00→18:38)
--- NOTE | 2019-07-20 04:00 | NUR ---
Pt is resting in bed without any distress noted. TPN and Lipids are infusing well. NGT to LIWS is in place and draining brownish liquid. Fall and safety precautions are in place.
[2019-07-20] MEDS: PIPERACILLIN/TAZO 2.25G/DEX-IS 50 ML IV SCH ×2 (06:26→13:35)
--- NOTE | 2019-07-20 06:50 | NUR ---
Pt is awake and resting comfortably in bed. All pt's needs, including oral and nasal suctioning, neil care and oral care were attended to. TPN and Lipids are infusing well. NGT to LIWS is in place. Bilateral wrist restraints are on and no circulatory impairment noted. Will endorse to day shift nurse.
[2019-07-20 07:42] LABS: ANION GAP 8 (5-15); CHLORIDE 102 mmol/L (98-107); CREATININE 3.36 mg/dL (0.55-1.30); GLUCOSE 138 mg/dL (70-99); POTASSIUM 4.3 mmol/L (3.5-5.1); SODIUM SERUM 137 mmol/L (136-145); UREA NITROGEN, BLOOD 26 mg/dL (8-21)
[2019-07-20 08:00] VITALS: BP_SYST 151
--- NOTE | 2019-07-20 08:00 | NUR ---
initial notes rec patient with hob elevate . ivf infusing well on the r upper arm. no infiltration noted. bed to the lowest position and side rails up and locked. call light within reached. resp easy and unlabored but with crackles noted. will continu eto monitor patient,
[2019-07-20] MEDS ORDERED: INSULIN GLARGINE 100 UNITS/ML 10 ML VIAL SUBCUT SCH (09:00)
[2019-07-20] MEDS: MINERAL OIL 30 ML UDC NG SCH (10:57)
[2019-07-20] MEDS: amLODIPine BESYLATE 10 MG TABLET PO SCH (10:58)
[2019-07-20] MEDS: FUROSEMIDE 40 MG/4 ML VIAL IVP SCH (10:59)
[2019-07-20] MEDS: HEPARIN SODIUM,PORCINE 5000 UNITS/ML VIAL SUBCUT SCH (11:01)
[2019-07-20] MEDS: BISACODYL 10 MG/SUPPOSITORY RC SCH (11:07)
[2019-07-20] MEDS: NITROGLYCERIN 1 INCH (GM) OINT. TP SCH (11:08)
--- NOTE | 2019-07-20 11:18 | NUR ---
spoke to Dr. Roach, covering for Dr. Mark MD okayed to discharge p[atient to [facility]
[2019-07-20 12:00] VITALS: BP_SYST 134
--- NOTE | 2019-07-20 12:23 | NUR ---
DC PLANNING: PATIENT HAS BEEN ACCEPTED AT [facility]. CURRENTLY WAITING FOR BED. DELL SPOKE WITH PATIENT'S SON (NATASHA JOHNSTON) @ AND DISCUSSED DC PLAN TO [facility]. PATIENT'S SON AGREED AND APPROVED FOR THE DC TO [facility]. WILL CALL PT'S SON BACK ONCE BED IS OBTAINED. Addendum: 07/20/19 at 1547 by Christina Ferguson RN SPOKE WITH YONI (CLINICAL LIAISON AT [facility]). PATIENT IS ACCEPTED AT [facility] AND ROOM NUMBER IS [id number]. TRANSPORTATION HAS BEEN SETUP WITH [facility] @ , SPOKE WITH DEYSI (DISPTACH), BOOKING PRIZER TIME IS AT 8PM. DELL CONTACTED PATIENT'S SON (NATASHA JOHNSTON) @ AND INFORMED HIM OF THE DISCHARGE TONIGHT TO [facility]. PATIENT'S SON AGREED. CM PROVIDED SON WITH [place] ADDRESS, PHONE NUMBER, ROOM NUMBER AND BOOKING PRIZER TIME.
[2019-07-20] MEDS: INSULIN LISPRO SLIDING SCALE 100 UNITS/ML VIAL (humaLOG) SUBCUT PRN (13:34)
[2019-07-20 15:43] VITALS: BP_SYST 134
[2019-07-20 16:52] VITALS: BP_SYST 143
--- NOTE | 2019-07-20 17:17 | NUR ---
Nutrition F/U (short note d/t high patient load) RD reviewed pt's current EMR including diet Hx, physician notes, nursing notes, pertinent labs/meds/procedures, care trends, and care activity. Pt was seen resting in bed w/ family member at bedside. TPN was seen infusing as per physician/pharmacy orders. Pt is not yet meeting optimal nutritional needs -- current TPN regimen provides 895 kcal/day, 29 gm protein/day, 1176 ml total volume/day, and GIR: 1.7 gm CHO/kg/min, which meets 72% of lower end of estimated caloric needs and 54% of lower end of estimated protein needs. RD recommendations for TPN D30%, AA5.4% at 70 ml/hr (goal rate), IL20% at 5 ml/hr daily via central line to provide 1278 kcal/day, 45 gm protein/day, 1800 ml total volume/day, and GIR: 2.7 gm CHO/kg/min, and meet 103% of estimated caloric needs and 83% of lower end of estimated protein needs. If/when medically appropriate, recommend Nepro 1.8 at 32 mL/hr, Free Water Flush: per physician. This provides 1382 kcal/day, 62 gm of protein/day, 558mL of fluid/day, and meets 93% of upper end of estimated caloric needs and 98% of upper estimated protein needs.
[2019-07-20] MEDS ORDERED: SODIUM CHLORIDE IV SCH ×10 (21:00)
[2019-07-20] MEDS ORDERED: [UNRECOGNIZED DRUG - OTHER] IV SCH ×10 (21:00)
[2019-07-20] MEDS ORDERED: NA PHOS IV SCH ×10 (21:00)
[2019-07-20] MEDS ORDERED: TPN NEPHRAMINE IV SCH ×10 (21:00)
== END 2019-07-20 20:24 | DRG 870 ==
LOC: SED 19:38 → STU 23:37 → SIC 07-03 09:17 → STU 07-18 23:35
PROVIDERS: ADMIT Internal Medicine Cardiovascular Disease; ATTEND Internal Medicine Cardiovascular Disease
PROC: 5A12012 Performance of Cardiac Output, Single, Manual (ICD-10-PCS; 2019-07-02)
PROC: 0BH17EZ Insertion of Endotracheal Airway into Trachea, Via Natural or Artificial Opening (ICD-10-PCS; 2019-07-02)
PROC: 5A1955Z Respiratory Ventilation, Greater than 96 Consecutive Hours (ICD-10-PCS; principal; 2019-07-03)
PROC: 5A1D70Z Performance of Urinary Filtration, Intermittent, Less than 6 Hours Per Day (ICD-10-PCS; 2019-07-05)
PROC: 05HY33Z Insertion of Infusion Device into Upper Vein, Percutaneous Approach (ICD-10-PCS; 2019-07-06)
PROC: 02PYX3Z Removal of Infusion Device from Great Vessel, External Approach (ICD-10-PCS; 2019-07-06)
PROC: 5A1D70Z Performance of Urinary Filtration, Intermittent, Less than 6 Hours Per Day (ICD-10-PCS; 2019-07-06)
PROC: 5A1D70Z Performance of Urinary Filtration, Intermittent, Less than 6 Hours Per Day (ICD-10-PCS; 2019-07-06)
PROC: 5A1D70Z Performance of Urinary Filtration, Intermittent, Less than 6 Hours Per Day (ICD-10-PCS; 2019-07-07)
PROC: 5A1D70Z Performance of Urinary Filtration, Intermittent, Less than 6 Hours Per Day (ICD-10-PCS; 2019-07-11)
PROC: 5A09357 Assistance with Respiratory Ventilation, Less than 24 Consecutive Hours, Continuous Positive Airway Pressure (ICD-10-PCS; 2019-07-12)
PROC: 5A1935Z Respiratory Ventilation, Less than 24 Consecutive Hours (ICD-10-PCS; 2019-07-12)
PROC: 5A09357 Assistance with Respiratory Ventilation, Less than 24 Consecutive Hours, Continuous Positive Airway Pressure (ICD-10-PCS; 2019-07-13)
PROC: 5A1935Z Respiratory Ventilation, Less than 24 Consecutive Hours (ICD-10-PCS; 2019-07-13)
PROC: 5A1D70Z Performance of Urinary Filtration, Intermittent, Less than 6 Hours Per Day (ICD-10-PCS; 2019-07-13)
PROC: 02HV33Z Insertion of Infusion Device into Superior Vena Cava, Percutaneous Approach (ICD-10-PCS; 2019-07-14)
PROC: B548ZZA Ultrasonography of Superior Vena Cava, Guidance (ICD-10-PCS; 2019-07-14)
PROC: 05HY33Z Insertion of Infusion Device into Upper Vein, Percutaneous Approach (ICD-10-PCS; 2019-07-14)
PROC: B543ZZA Ultrasonography of Right Jugular Veins, Guidance (ICD-10-PCS; 2019-07-14)
PROC: 5A09357 Assistance with Respiratory Ventilation, Less than 24 Consecutive Hours, Continuous Positive Airway Pressure (ICD-10-PCS; 2019-07-14)
PROC: 5A1935Z Respiratory Ventilation, Less than 24 Consecutive Hours (ICD-10-PCS; 2019-07-14)
PROC: 5A1D70Z Performance of Urinary Filtration, Intermittent, Less than 6 Hours Per Day (ICD-10-PCS; 2019-07-14)
PROC: 5A09357 Assistance with Respiratory Ventilation, Less than 24 Consecutive Hours, Continuous Positive Airway Pressure (ICD-10-PCS; 2019-07-15)
PROC: 5A1935Z Respiratory Ventilation, Less than 24 Consecutive Hours (ICD-10-PCS; 2019-07-15)
PROC: 5A1D70Z Performance of Urinary Filtration, Intermittent, Less than 6 Hours Per Day (ICD-10-PCS; 2019-07-15)
PROC: 5A1D70Z Performance of Urinary Filtration, Intermittent, Less than 6 Hours Per Day (ICD-10-PCS; 2019-07-16)
PROC: 05HY33Z Insertion of Infusion Device into Upper Vein, Percutaneous Approach (ICD-10-PCS; 2019-07-17)
PROC: B54MZZA Ultrasonography of Right Upper Extremity Veins, Guidance (ICD-10-PCS; 2019-07-17)
PROC: 30233N1 Transfusion of Nonautologous Red Blood Cells into Peripheral Vein, Percutaneous Approach (ICD-10-PCS; 2019-07-17)
PROC: 5A1D70Z Performance of Urinary Filtration, Intermittent, Less than 6 Hours Per Day (ICD-10-PCS; 2019-07-18)
DX: A41.9 Sepsis, unspecified organism (principal); I46.9 Cardiac arrest, cause unspecified; J96.00 Acute respiratory failure, unspecified whether with hypoxia or hypercapnia; N18.6 End stage renal disease; N17.0 Acute kidney failure with tubular necrosis; R65.21 Severe sepsis with septic shock; J69.0 Pneumonitis due to inhalation of food and vomit; K56.7 Ileus, unspecified; E46 Unspecified protein-calorie malnutrition; E87.1 Hypo-osmolality and hyponatremia; E87.2 Acidosis; Z99.11 Dependence on respirator [ventilator] status; I50.22 Chronic systolic (congestive) heart failure; G93.1 Anoxic brain damage, not elsewhere classified; I13.2 Hypertensive heart and chronic kidney disease with heart failure and with stage 5 chronic kidney disease, or end stage renal disease; T82.41XA Breakdown (mechanical) of vascular dialysis catheter, initial encounter; D63.1 Anemia in chronic kidney disease; E11.22 Type 2 diabetes mellitus with diabetic chronic kidney disease; E11.319 Type 2 diabetes mellitus with unspecified diabetic retinopathy without macular edema; E11.40 Type 2 diabetes mellitus with diabetic neuropathy, unspecified; E11.51 Type 2 diabetes mellitus with diabetic peripheral angiopathy without gangrene; E11.65 Type 2 diabetes mellitus with hyperglycemia; E66.9 Obesity, unspecified; K56.41 Fecal impaction; H54.8 Legal blindness, as defined in USA; E87.5 Hyperkalemia; Y71.2 Prosthetic and other implants, materials and accessory cardiovascular devices associated with adverse incidents; Z99.2 Dependence on renal dialysis; Z91.19 Patient's noncompliance with other medical treatment and regimen; Z89.512 Acquired absence of left leg below knee; Z87.01 Personal history of pneumonia (recurrent); Z83.3 Family history of diabetes mellitus; Z79.4 Long term (current) use of insulin; Z68.27 Body mass index [BMI] 27.0-27.9, adult; Z79.899 Other long term (current) drug therapy; Z78.1 Physical restraint status; Z87.81 Personal history of (healed) traumatic fracture; Y92.89 Other specified places as the place of occurrence of the external cause
CPT/HCPCS: 36415; 36600; 71045; 71250-TC; 74018; 74230; 74250-TC; 76700-TC; 76770; 80048; 80053; 80061; 81000-TC; 82575-TC; 82803-TC; 82962; 83036; 83540-TC; 83605; 83690-TC; 83735-TC; 83880; 83970; 84100-TC; 84156; 84436; 84443-TC; 84478-TC; 84480; 84484; 85007; 85025; 85027; 85610-TC; 85730-TC; 86710; 86738; 86886; 86900; 86901; 86920; 87040-TC; 87070-TC; 87081; 87205-TC; 87449; 90935; 90937; 92610-GN; 92950; 93005; 93306; 93970; 94002; 94003; 94640; 94760; 96361; 96374; 96375; 96376; 99285; C1751; G0378; J0360; J0456; J0461; J0610; J0696; J0885; J1265; J1644; J1815; J1940; J2001; J2020; J2060; J2270; J2543; J2930; J2997; J3475; J3480; J3490; J7030; J7040; J7050; J7060; J7131; J7612; J7613; P9021; Q9963; Q9964